=== PATIENT | male | born 1950 | race Caucasian/White ===

== ENCOUNTER → 2016-04-20 | Outpatient (CLI) | payer MEDICARE, MEDICAID ==
[2016-04-20 13:13] LABS: BASO % 0.2 % (0.0-1.0); EOS # 1.9 K/mm3 (0.0-0.50); EOS % 29.6 % (0.0-3.0); LYMPH # 0.8 K/mm3 (1.5-4.5); LYMPH % 12.5 % (24.0-44.0); MEAN CORPUSCULAR HEMOGLOBIN 31.2 pg (27.0-33.0); MEAN CORPUSCULAR HGB CONC 33.1 g/dl (32.0-36.5); MEAN CORPUSCULAR VOLUME 94.3 fl (80.0-96.0); MONO # 0.2 K/mm3 (0.0-0.8); MONO % 2.5 % (0.0-5.0); NEUTROPHILS # 3.5 K/mm3 (1.8-7.7); NEUTROPHILS % 53.8 % (36.0-66.0); RED CELL DISTRIBUTION WIDTH 12.8 % (11.5-14.5); WHITE BLOOD COUNT 6.4 K/mm3 (4.0-10.0)
== END ==
LOC: M LAB 12:20
PROVIDERS: ATTEND Internal Medicine Gastroenterology
DX: K51.90 Ulcerative colitis, unspecified, without complications (principal)

== ENCOUNTER → 2016-04-25 | Outpatient (CLI) | payer MEDICARE ==
[~2016-04-25] VITALS: Ht 182.9 cm; Wt 75.0 kg
[~2016-04-25] MED LIST: ALBU83IN INH; APRI0.37 PO; CITA20TA4 PO; CLON0.5T PO; NS 1,000 ML IV SCH; PRED20TA PO; PROPOFOL 200 MG/20 ML VIAL As Ordered ONE; SUCR1TA PO; SYMB80INH INH; XANA0.5T PO; [UNRECOGNIZED DRUG - OTHER]
--- NOTE | 2016-04-25 14:35 | ROOR ---
Patient Name: Todd Najera Procedure Date: 04/25/2016 2:14 PM Date of : 1950 Age: 65 Room: [facility] Gender: Male Note Status: Finalized Procedure: Upper GI endoscopy + Biopsies + Hemoclip Indications: Dysphagia, Weight loss Providers: Andrade Gaona MD Referring MD: ARIA London Requesting Provider: Medicines: Monitored Anesthesia Care Complications: No immediate complications. Procedure: Pre-Anesthesia Assessment: - The heart rate, respiratory rate, oxygen saturations, blood pressure, adequacy of pulmonary ventilation, and response to care were monitored throughout the procedure. The Endoscope was introduced through the mouth, and advanced to the second part of duodenum. The upper GI endoscopy was accomplished without difficulty. The patient tolerated the procedure well. Findings: The Z-line was regular and was found 40 cm from the incisors. Mildly severe esophagitis with no bleeding was found 40 cm from the incisors. Biopsies were taken with a cold forceps for histology. Mildly severe esophagitis with no bleeding was found 40 cm from the incisors. Biopsies were taken with a cold forceps for histology. To stop active bleeding, one hemostatic clip was successfully placed (MR conditional) at the gastroesophageal junction. There was no bleeding at the end of the procedure. Diffuse candidiasis was found in the middle third of the esophagus. Biopsies were taken with a cold forceps for histology. No other significant abnormalities were identified in a careful examination of the stomach. The exam of the duodenum was otherwise normal. Impression: - Z-line regular, 40 cm from the incisors. - Mildly severe candidiasis esophagitis. Biopsied. - Mildly severe reflux esophagitis. Biopsied. - Monilial esophagitis. Biopsied. - One hemostatic clip was successfully placed (MR conditional) at the gastroesophageal junction. - The examination was otherwise normal. Recommendation: - Patient has a contact number available for emergencies. The signs and symptoms of potential delayed complications were discussed with the patient. Return to normal activities tomorrow. Written discharge instructions were provided to the patient. - Discharge patient to home. - Follow an antireflux regimen. - Continue present medications. - Await pathology results. - Telephone GI clinic for pathology results in 1 week. - Return to referring physician. - The findings and recommendations were discussed with the patient's family. Andrade Gaona MD Andrade Gaona MD 04/25/2016 2:35:40 PM This report has been signed electronically. Number of Addenda: 0 Note Initiated On: 04/25/2016 2:14 PM Estimated Blood Loss: Estimated blood loss: none.
--- NOTE | 2016-04-25 14:53 | ROOR ---
Patient Name: Todd Najera Procedure Date: 04/25/2016 2:16 PM Date of : 1950 Age: 65 Room: [facility] Gender: Male Note Status: Finalized Procedure: Colonoscopy to Cecum + Biopsy Polypectomy + Biopsies for MC. Indications: Abdominal pain, Clinically significant diarrhea of unexplained origin, Weight loss Providers: Andrade Gaona MD Referring MD: ARIA London Requesting Provider: Medicines: Monitored Anesthesia Care Complications: No immediate complications. Procedure: Pre-Anesthesia Assessment: - The heart rate, respiratory rate, oxygen saturations, blood pressure, adequacy of pulmonary ventilation, and response to care were monitored throughout the procedure. The Colonoscope was introduced through the anus and advanced to the cecum, identified by appendiceal orifice and ileocecal valve. The colonoscopy was performed without difficulty. The patient tolerated the procedure well. The quality of the bowel preparation was good. Findings: The perianal and digital rectal examinations were normal. Non-bleeding internal hemorrhoids were found during retroflexion. The hemorrhoids were mild, small and Grade I (internal hemorrhoids that do not prolapse). Multiple small and large-mouthed diverticula were found in the entire colon. A diminutive polyp was found at 30 cm proximal to the anus. The polyp was sessile. The polyp was removed with a jumbo cold forceps. Resection and retrieval were complete. A scattered area of mildly erythematous and granular mucosa was found in the recto-sigmoid colon. Biopsies for histology were taken with a cold forceps from the ascending colon, transverse colon and descending colon for evaluation of microscopic colitis. The exam was otherwise without abnormality on direct and retroflexion views. Impression: - Non-bleeding internal hemorrhoids. - Diverticulosis in the entire examined colon. - One diminutive polyp at 30 cm proximal to the anus, removed with a jumbo cold forceps. Resected and retrieved. - Erythematous and granular mucosa in the recto-sigmoid colon. - The examination was otherwise normal on direct and retroflexion views. - Biopsies were taken with a cold forceps from the ascending colon, transverse colon and descending colon for evaluation of microscopic colitis. - The exam was otherwise normal to the cecum. Recommendation: - Patient has a contact number available for emergencies. The signs and symptoms of potential delayed complications were discussed with the patient. Return to normal activities tomorrow. Written discharge instructions were provided to the patient. - High fiber diet. - Discharge patient to home. - Continue present medications. - Await pathology results. - Telephone GI clinic for pathology results in 1 week. - Return to referring physician. - The findings and recommendations were discussed with the patient's family. Andrade Gaona MD Andrade Gaona MD 04/25/2016 2:52:47 PM This report has been signed electronically. Number of Addenda: 0 Note Initiated On: 04/25/2016 2:16 PM Estimated Blood Loss: Estimated blood loss: none.
[2016-04-25 15:46] VITALS: BP 115/72
== END | disposition home or self-care (01) ==
LOC: M OPP 12:33
PROVIDERS: ATTEND Internal Medicine Gastroenterology
DX: K64.0 First degree hemorrhoids (principal); K57.30 Diverticulosis of large intestine without perforation or abscess without bleeding; D12.5 Benign neoplasm of sigmoid colon; K63.89 Other specified diseases of intestine; R63.4 Abnormal weight loss; K21.0 Gastro-esophageal reflux disease with esophagitis; B37.81 Candidal esophagitis; I10 Essential (primary) hypertension; J45.909 Unspecified asthma, uncomplicated; K51.90 Ulcerative colitis, unspecified, without complications; R19.7 Diarrhea, unspecified; Z79.52 Long term (current) use of systemic steroids; Z79.899 Other long term (current) drug therapy; Z87.891 Personal history of nicotine dependence

== ENCOUNTER → 2016-06-18 | Outpatient (REF) | payer MEDICARE, MEDICAID ==
[~2016-06-18] MED LIST changes: -NS 1,000 ML IV SCH; -PROPOFOL 200 MG/20 ML VIAL As Ordered ONE
[2016-06-18 14:08] LABS: BASO % 0.2 % (0.0-1.0); EOS # 0.6 K/mm3 (0.0-0.50); EOS % 10.4 % (0.0-3.0); LARGE UNSTAINED CELL # 0.1 K/mm3 (0.0-0.4); LARGE UNSTAINED CELL % 0.9 % (0.0-4.0); LYMPH # 0.8 K/mm3 (1.5-4.5); LYMPH % 14.9 % (24.0-44.0); MEAN CORPUSCULAR HEMOGLOBIN 31.7 pg (27.0-33.0); MEAN CORPUSCULAR HGB CONC 32.3 g/dl (32.0-36.5); MEAN CORPUSCULAR VOLUME 98.1 fl (80.0-96.0); MONO # 0.1 K/mm3 (0.0-0.8); MONO % 2.2 % (0.0-5.0); NEUTROPHILS # 3.9 K/mm3 (1.8-7.7); NEUTROPHILS % 71.5 % (36.0-66.0); PLATELET COUNT, AUTOMATED 316 k/mm3 (150-450); RED CELL DISTRIBUTION WIDTH 13.9 % (11.5-14.5); WHITE BLOOD COUNT 5.5 K/mm3 (4.0-10.0)
[2016-06-18 14:29] LABS: ERYTHROCYTE SEDIMENTATION RATE 11 mm/hr (0-20)
== END ==
LOC: M LABDRAW1 13:10
PROVIDERS: ATTEND Physician Assistant Surgical
DX: M70.41 Prepatellar bursitis, right knee (principal); Z79.899 Other long term (current) drug therapy

== ENCOUNTER → 2016-06-28 | Outpatient (CLI) | payer MEDICARE, MEDICAID ==
[2016-06-28 16:44] LABS: BASO % 0.1 % (0.0-1.0); EOS # 0.7 K/mm3 (0.0-0.50); EOS % 11.7 % (0.0-3.0); LYMPH # 0.8 K/mm3 (1.5-4.5); LYMPH % 13.4 % (24.0-44.0); MEAN CORPUSCULAR HEMOGLOBIN 31.1 pg (27.0-33.0); MEAN CORPUSCULAR HGB CONC 31.9 g/dl (32.0-36.5); MEAN CORPUSCULAR VOLUME 97.5 fl (80.0-96.0); MONO # 0.3 K/mm3 (0.0-0.8); MONO % 4.4 % (0.0-5.0); NEUTROPHILS # 4.3 K/mm3 (1.8-7.7); NEUTROPHILS % 69.5 % (36.0-66.0); WHITE BLOOD COUNT 6.1 K/mm3 (4.0-10.0)
== END ==
LOC: M SMT 11:27
PROVIDERS: ATTEND Allergy & Immunology Allergy
DX: T78.3XXA Angioneurotic edema, initial encounter (principal)

== ENCOUNTER → 2016-07-02 | Outpatient (CLI) | payer MEDICARE, MEDICAID ==
[2016-07-02 18:43] LABS: ALBUMIN 3.5 GM/DL (3.2-5.2); ALBUMIN/GLOBULIN RATIO 1.13 (1.00-1.93); ALKALINE PHOSPHATASE 69 U/L (45-117); ALT/SGPT 15 U/L (12-78); ANION GAP 6 MEQ/L (8-16); AST/SGOT 15 U/L (15-37); BILIRUBIN,TOTAL 0.4 MG/DL (0.2-1.0); BLOOD UREA NITROGEN 15 MG/DL (7-18); CALCIUM LEVEL 8.5 MG/DL (8.8-10.2); CARBON DIOXIDE LEVEL 28 MEQ/L (21-32); CHLORIDE LEVEL 107 MEQ/L (98-107); CREATININE FOR GFR 1.18 MG/DL (0.70-1.30); GLOMERULAR FILTRATION RATE > 60.0 (>49); GLUCOSE, FASTING 72 MG/DL (80-110); POTASSIUM SERUM 4.2 MEQ/L (3.5-5.1); SODIUM LEVEL 141 MEQ/L (136-145); TOTAL PROTEIN 6.6 GM/DL (6.4-8.2)
[2016-07-02 19:02] LABS: THYROID PEROXIDASE ANTIBODY < 28.0 U/ML (<60.0)
[2016-07-03 08:15] LABS: CONTROL LINE HPYORI INT CTR LINE PRESENT
== END ==
LOC: M SMT 13:45
PROVIDERS: ATTEND Allergy & Immunology Allergy
DX: T78.3XXA Angioneurotic edema, initial encounter (principal)

== ENCOUNTER → 2016-07-04 | Outpatient (REF) | payer MEDICARE, MEDICAID | LOC: M LABDRWAD 10:34 | PROVIDERS: ATTEND Allergy & Immunology Allergy | DX: T78.3XXA Angioneurotic edema, initial encounter (principal) ==

== ENCOUNTER → 2016-07-05 | Outpatient (REF) | payer MEDICARE, MEDICAID | LOC: M LAB REF 20:29 | PROVIDERS: ATTEND Physician Assistant | DX: J02.9 Acute pharyngitis, unspecified (principal) ==

== ENCOUNTER → 2016-07-31 | Outpatient (REF) | payer MEDICARE, MEDICAID ==
[2016-07-31 13:35] LABS: BASO % 0.1 % (0.0-1.0); EOS # 0.8 K/mm3 (0.0-0.50); EOS % 11.4 % (0.0-3.0); LARGE UNSTAINED CELL # 0.1 K/mm3 (0.0-0.4); LARGE UNSTAINED CELL % 1.3 % (0.0-4.0); LYMPH # 0.6 K/mm3 (1.5-4.5); LYMPH % 9.1 % (24.0-44.0); MEAN CORPUSCULAR HEMOGLOBIN 30.8 pg (27.0-33.0); MEAN CORPUSCULAR HGB CONC 31.5 g/dl (32.0-36.5); MEAN CORPUSCULAR VOLUME 97.7 fl (80.0-96.0); MONO # 0.2 K/mm3 (0.0-0.8); MONO % 3.2 % (0.0-5.0); NEUTROPHILS # 5.2 K/mm3 (1.8-7.7); NEUTROPHILS % 74.9 % (36.0-66.0); PLATELET COUNT, AUTOMATED 367 k/mm3 (150-450); RED CELL DISTRIBUTION WIDTH 13.8 % (11.5-14.5)
[2016-07-31 14:10] LABS: ALBUMIN 3.5 GM/DL (3.2-5.2); ALBUMIN/GLOBULIN RATIO 1.06 (1.00-1.93); ALKALINE PHOSPHATASE 76 U/L (45-117); ALT/SGPT 21 U/L (12-78); ANION GAP 7 MEQ/L (8-16); AST/SGOT 18 U/L (15-37); BILIRUBIN,TOTAL 0.2 MG/DL (0.2-1.0); BLOOD UREA NITROGEN 12 MG/DL (7-18); CALCIUM LEVEL 8.4 MG/DL (8.8-10.2); CARBON DIOXIDE LEVEL 31 MEQ/L (21-32); CHLORIDE LEVEL 104 MEQ/L (98-107); CHOLESTEROL LEVEL 190 MG/DL (<200); CREATININE FOR GFR 1.18 MG/DL (0.70-1.30); GLOMERULAR FILTRATION RATE > 60.0 (>49); GLUCOSE, FASTING 121 MG/DL (80-110); POTASSIUM SERUM 4.6 MEQ/L (3.5-5.1); SODIUM LEVEL 142 MEQ/L (136-145); TOTAL PROTEIN 6.8 GM/DL (6.4-8.2); TRIGLYCERIDES LEVEL 74 MG/DL (<150)
== END ==
LOC: M SFHCADAM 08:32
PROVIDERS: ATTEND Physician Assistant Medical
DX: F41.0 Panic disorder [episodic paroxysmal anxiety] (principal); K51.90 Ulcerative colitis, unspecified, without complications

== ENCOUNTER → 2016-11-05 | Outpatient (CLI) | payer MEDICARE | LOC: M RAD 16:26 | PROVIDERS: ATTEND Internal Medicine Gastroenterology | DX: R10.9 Unspecified abdominal pain (principal) ==

== ENCOUNTER → 2016-11-05 | Outpatient (REF) | payer MEDICARE | LOC: M LABDRWAD 20:10 | PROVIDERS: ATTEND Internal Medicine Gastroenterology | DX: R63.4 Abnormal weight loss (principal); R10.9 Unspecified abdominal pain ==

== ENCOUNTER → 2016-11-23 | Outpatient (CLI) | payer MEDICARE ==
[~2016-11-23] MED LIST changes: +E-Z-GAS II EFFERVESCENT PACKET (SODIUM BICARB./CITRIC ACID/SIMETHICONE) As Ordered ONE; +E-Z-HD 98% w/w 340GM SUSP BTL As Ordered ONE; +E-Z-PAQUE 96% w/w SUSP 176GM BTL As Ordered ONE
--- NOTE | 2016-11-23 17:13 | REP ---
Upper GI air contrast with small bowel follow-through The procedure was performed under the direct supervision of Dr. Patino. The inside sales consultant film shows no organomegaly or pathological masses. The intestinal gas pattern is nonspecific. There are gallstones identified. Liquid barium and gas producing crystals were given in the erect position as well as liquid barium in the prone oblique position in order to perform a double contrast upper GI examination. Additionally liquid barium was given at the end of the examination in order to perform a small bowel follow-through. The oral and pharyngeal stages of deglutition are unremarkable. Esophageal transport is prompt and efficient and there is no esophagitis or stricture or mucosal ring. There is a sliding type hiatal hernia present . Gastroesophageal reflux is not demonstrated on this examination. The stomach erazo are normally outlined . The rugal folds are smooth and regular. There is no gastritis neoplasm or ulcer disease. Within the duodenum there are thickened folds which may represent duodenitis. There is no paty ulcer identified. The visualized portion of the proximal small bowel appears normal in course and caliber. The barium column was followed through the small bowel to the level of the terminal ileum. Small bowel transit time is approximately 30 minutes. During fluoroscopy gentle palpation shows all loops are freely movable and pliable. There are no fixed or angulated loops. The bowel is displaced of the pelvis likely due to a distended bladder. Spot filming of the terminal ileum shows it to be unremarkable. Impression: 1. There is a sliding type hiatal hernia present. 2. There are thickened folds in the duodenum which may represent duodenitis. There is no paty ulcer identified. 3. There are gallstones identified on the inside sales consultant film . 4. The bowel is displaced out of the pelvis likely due to distended bladder. 3 minutes and 45 seconds of fluoro time was utilized for this procedure. Reviewed by CARI Wilson 11/23/2016 04:56 PSigned by Cruz Patino MD 11/23/2016 05:00 P
== END ==
LOC: M RAD 08:51
PROVIDERS: ATTEND Internal Medicine Gastroenterology
DX: R10.9 Unspecified abdominal pain (principal); R63.4 Abnormal weight loss

== ENCOUNTER → 2016-12-21 | Outpatient (CLI) | payer MEDICARE ==
[~2016-12-21] MED LIST changes: -E-Z-GAS II EFFERVESCENT PACKET (SODIUM BICARB./CITRIC ACID/SIMETHICONE) As Ordered ONE; -E-Z-HD 98% w/w 340GM SUSP BTL As Ordered ONE; -E-Z-PAQUE 96% w/w SUSP 176GM BTL As Ordered ONE
== END ==
LOC: M LAB 11:08
PROVIDERS: ATTEND Internal Medicine Gastroenterology
DX: R63.4 Abnormal weight loss (principal)

== ENCOUNTER → 2018-04-21 | Outpatient (REF) | payer MEDICARE, MEDICAID ==
[~2018-04-21] MED LIST changes: -CLON0.5T PO; +CLON0.5T8 PO
[2018-04-21 13:07] LABS: BASO % 0.5 % (0.0-1.0); EOS # 0.6 10^3/uL (0.0-0.50); EOS % 6.9 % (0.0-3.0); HEMATOCRIT 45.9 % (42.0-52.0); LYMPH % 11.3 % (24.0-44.0); MEAN CORPUSCULAR HGB CONC 32.7 g/dl (32.0-36.5); MEAN CORPUSCULAR VOLUME 94.8 fl (80.0-96.0); MONO # 0.5 10^3/uL (0.0-0.8); MONO % 5.8 % (0.0-5.0); NEUTROPHILS # 6.5 10^3/uL (1.8-7.7); NEUTROPHILS % 75.2 % (36.0-66.0); PLATELET COUNT, AUTOMATED 300 10^3/uL (150-450); RED BLOOD COUNT 4.84 10^6/uL (4.30-6.10); WHITE BLOOD COUNT 8.6 10^3/uL (4.0-10.0)
[2018-04-21 13:56] LABS: ALBUMIN 3.6 GM/DL (3.2-5.2); ALT/SGPT 22 U/L (12-78); BILIRUBIN,TOTAL 0.5 MG/DL (0.2-1.0); BLOOD UREA NITROGEN 13 MG/DL (7-18); CALCIUM LEVEL 8.5 MG/DL (8.8-10.2); CARBON DIOXIDE LEVEL 27 MEQ/L (21-32); CHLORIDE LEVEL 108 MEQ/L (98-107); CHOLESTEROL LEVEL 189 MG/DL (<200); CHOLESTEROL RISK RATIO 3.203 (<5); CREATININE FOR GFR 1.17 MG/DL (0.70-1.30); GLOMERULAR FILTRATION RATE > 60.0 (>49); GLUCOSE, FASTING 100 MG/DL (70-100); HDL CHOLESTEROL 59 MG/DL (>40); LDL CHOLESTEROL 112 MG/DL (<100); NON-HDL-C 130 MG/DL; POTASSIUM SERUM 4.6 MEQ/L (3.5-5.1); SODIUM LEVEL 142 MEQ/L (136-145); TRIGLYCERIDES LEVEL 89 MG/DL (<150)
== END ==
LOC: M SFHCADAM 08:02
PROVIDERS: ATTEND Physician Assistant Medical
DX: Z13.220 Encounter for screening for lipoid disorders (principal); Z13.0 Encounter for screening for diseases of the blood and blood-forming organs and certain disorders involving the immune mechanism; Z12.5 Encounter for screening for malignant neoplasm of prostate; F41.0 Panic disorder [episodic paroxysmal anxiety]; J45.41 Moderate persistent asthma with (acute) exacerbation; K51.90 Ulcerative colitis, unspecified, without complications; K20.9 Esophagitis, unspecified; L98.9 Disorder of the skin and subcutaneous tissue, unspecified
CPT/HCPCS: 80053; 80061; 85025; G0103; G0463

== ENCOUNTER → 2018-05-05 | Outpatient (REF) | payer MEDICARE, MEDICAID | LOC: M SMT 12:44 | PROVIDERS: ATTEND Nurse Practitioner Family | DX: R97.20 Elevated prostate specific antigen [PSA] (principal); R33.9 Retention of urine, unspecified | CPT/HCPCS: 51702; 51798; 87086; G0463 ==

== ENCOUNTER → 2018-05-12 | Outpatient (REF) | payer MEDICARE, MEDICAID ==
[2018-05-12 13:33] LABS: APPEARANCE, URINE HAZY (CLEAR); BACTERIA, URINE AUTO NEGATIVE (NEGATIVE); BILIRUBIN, URINE AUTO NEGATIVE (NEGATIVE); BLOOD, URINE BLOOD 3+ (NEGATIVE); COLOR, URINE YELLOW (YELLOW); GLUCOSE, URINE (UA) AUTO NEGATIVE (NEGATIVE); KETONE, URINE AUTO NEGATIVE (NEGATIVE); LEUKOCYTE ESTERASE, URINE AUTO NEGATIVE (NEGATIVE); NITRITE, URINE AUTO NEGATIVE (NEGATIVE); PROTEIN, URINE AUTO NEGATIVE (NEGATIVE); RBC, URINE AUTO 138 /HPF (0-3); SPECIFIC GRAVITY URINE AUTO 1.018 (1.002-1.035); SQUAMOUS EPITHELIAL CELL UR AU 0 /HPF (0-6); UROBILINOGEN, URINE AUTO 0.2 mg/dL (0.0-2.0); WBC, URINE AUTO 1 /HPF (0-3)
== END ==
LOC: M SMT 13:03
PROVIDERS: ATTEND Nurse Practitioner Family
DX: R30.9 Painful micturition, unspecified (principal)

== ENCOUNTER → 2018-06-03 | Outpatient (REF) | payer MEDICARE, MEDICAID, OTHER ==
[2018-06-05 15:05] LABS: PSA % FREE 12.5 % (.); PSA FREE 0.76 ng/mL; PSA TOTAL 6.1 ng/mL (0.0-4.0)
== END ==
LOC: M LABDRWAD 19:19
PROVIDERS: ATTEND Nurse Practitioner Family
DX: R97.20 Elevated prostate specific antigen [PSA] (principal)
CPT/HCPCS: 36415; 84154; G0463

== ENCOUNTER → 2018-07-08 | Outpatient (CLI) | payer MEDICARE, OTHER | LOC: M SMT PRO 09:30 | PROVIDERS: ATTEND Urology | DX: R97.20 Elevated prostate specific antigen [PSA] (principal); Z53.8 Procedure and treatment not carried out for other reasons ==

== ENCOUNTER → 2018-07-08 | Outpatient (REF) | payer MEDICARE, MEDICAID, OTHER | LOC: M SMT 13:57 | PROVIDERS: ATTEND Urology | DX: R30.0 Dysuria (principal) ==

== ENCOUNTER → 2018-07-25 | Outpatient (REF) | payer MEDICARE ==
[~2018-07-25] MED LIST changes: -CITA20TA4 PO; +CITA20TA6 PO
[2018-07-25 18:12] LABS: APPEARANCE, URINE CLEAR (CLEAR); BACTERIA, URINE AUTO NEGATIVE (NEGATIVE); BILIRUBIN, URINE AUTO NEGATIVE (NEGATIVE); BLOOD, URINE BLOOD NEGATIVE (NEGATIVE); COLOR, URINE YELLOW (YELLOW); GLUCOSE, URINE (UA) AUTO NEGATIVE (NEGATIVE); KETONE, URINE AUTO NEGATIVE (NEGATIVE); LEUKOCYTE ESTERASE, URINE AUTO NEGATIVE (NEGATIVE); MUCUS, URINE SMALL (NEGATIVE); NITRITE, URINE AUTO NEGATIVE (NEGATIVE); PROTEIN, URINE AUTO NEGATIVE (NEGATIVE); RBC, URINE AUTO 0 /HPF (0-3); SQUAMOUS EPITHELIAL CELL UR AU 0 /HPF (0-6); UROBILINOGEN, URINE AUTO 0.2 mg/dL (0.0-2.0); WBC, URINE AUTO 1 /HPF (0-3)
== END ==
LOC: M SMT 17:13
PROVIDERS: ATTEND Urology
DX: N39.0 Urinary tract infection, site not specified (principal)

== ENCOUNTER → 2018-07-29 | Outpatient (CLI) | payer MEDICARE ==
--- NOTE | 2018-07-29 10:56 | REP ---
Prostate sonography: History: Elevated PSA Sonographic findings: Trans rectal prostate sonography demonstrates unremarkable seminal vesicles. Prostate gland is heterogeneously enlarged with calcifications and cystic changes noted. Glandular dimensions are measured at 5.0 x 4.3 x 5.2 cm with a calculated glandular volume of 57.8 ml. There are four focally identified hypoechoic nodular areas. In the right base there is a 1.2 centimeter area, and right mid gland there is a 0.6 cm area in the left mid gland there is a 0.5 cm hypoechoic area in the left apex laterally there is a 0.6 cm hypoechoic area. Transrectal sonographic guidance is provided to Dr. Wilson who performed trans rectal ultrasound guided needle biopsy procedure . Electronically Signed by Rajesh Chavez MD 07/29/2018 10:48 A
== END ==
LOC: M SMT PRO 08:50
PROVIDERS: ATTEND Urology
DX: C61 Malignant neoplasm of prostate (principal)
CPT/HCPCS: 55700; 76872; 76942; G0416

== ENCOUNTER → 2018-10-13 | Outpatient (REF) | payer MEDICARE, MEDICAID | LOC: M SFHCPLAZ 09:37 | PROVIDERS: ATTEND Dermatology | DX: D23.39 Other benign neoplasm of skin of other parts of face (principal); L82.0 Inflamed seborrheic keratosis ==

== ENCOUNTER → 2018-11-12 | Outpatient (CLI) | payer MEDICARE, MEDICAID ==
[~2018-11-12] MED LIST changes: +ALLE1TAB23 PO; +FLOM0.4C39 PO; +LEVOTAB10 PO; +SULF1TAB93 PO
--- NOTE | 2018-11-12 13:38 | REP ---
Clinical: Preoperative assessment. Prostate cancer . Comparison: 08/30/2015 . Technique: PA and lateral. Findings: The mediastinum and cardiac silhouette are normal. The lung schmitz are clear and without acute consolidation, effusion, or pneumothorax. The skeletal structures are intact and normal. Impression: 1. No acute cardiopulmonary process. Electronically Signed by Mich Pandey MD 11/12/2018 01:30 P
[2018-11-12 18:22] LABS: HEMATOCRIT 45.2 % (42.0-52.0); MEAN CORPUSCULAR HGB CONC 33.2 g/dl (32.0-36.5); MEAN CORPUSCULAR VOLUME 96.4 fl (80.0-96.0); PLATELET COUNT, AUTOMATED 305 10^3/uL (150-450); RED BLOOD COUNT 4.69 10^6/uL (4.30-6.10); WHITE BLOOD COUNT 7.4 10^3/uL (4.0-10.0)
[2018-11-12 18:30] LABS: BLOOD UREA NITROGEN 11 MG/DL (7-18); CALCIUM LEVEL 9.4 MG/DL (8.8-10.2); CARBON DIOXIDE LEVEL 32 MEQ/L (21-32); CHLORIDE LEVEL 108 MEQ/L (98-107); CREATININE FOR GFR 1.15 MG/DL (0.70-1.30); GLOMERULAR FILTRATION RATE > 60.0 (>49); GLUCOSE, FASTING 98 MG/DL (70-100); SODIUM LEVEL 143 MEQ/L (136-145)
[2018-11-12 18:34] LABS: INR 1.06; PROTHROMBIN TIME 13.5 SECONDS (11.8-14.0)
[2018-11-12 18:35] LABS: PARTIAL THROMBOPLASTIN TIME 31.3 SECONDS (25.0-38.4)
== END ==
LOC: M SMT 13:04
PROVIDERS: ATTEND Urology
DX: Z01.818 Encounter for other preprocedural examination (principal); C61 Malignant neoplasm of prostate; N39.0 Urinary tract infection, site not specified

== ENCOUNTER 2018-11-20 10:53 | Inpatient (IN) | payer MEDICARE ==
[~2018-11-20] VITALS: Ht 182.9 cm; Wt 75.2 kg
[~2018-11-20 10:53] MED LIST changes: +CLON0.5T2 PO; -CLON0.5T8 PO; +LIDOCAINE 2% INJ 100 MG/5 ML SDV (FOR ANES.) As Ordered ONE; +MIDAZOLAM INJ 2 MG/2 ML VIAL (J2250) As Ordered ONE; +ONDANSETRON 4MG/2ML VIAL (J2405) As Ordered ONE; +ROCURONIUM BROMIDE 50 MG/5 ML VIAL As Ordered ONE; +SUGAMMADEX SODIUM 500 MG/5 ML VIAL (BRIDION) As Ordered ONE; +dexameTHASONE 4 MG/ML 1ML VIAL (J1100) As Ordered ONE; +fentaNYL 250 MCG/5 ML INJECTION (J3010) As Ordered ONE; +propofoL 200 MG/20 ML VIAL As Ordered ONE
[2018-11-20] MEDS ORDERED: ceFAZolin 2 GM/D5W 50 ML IV BAG (J0690 PER 500MG) As Ordered ONE (11:24)
[2018-11-20] MEDS ORDERED: HEPARIN SOD (PORCINE) 5000 UNITS/ML VIAL As Ordered ONE ×2 (11:24→11:52)
[2018-11-20] MEDS ORDERED: ceFAZolin SOD 2 GM in IV 1 EA IV ONE (11:30)
[2018-11-20] MEDS ORDERED: HEPARIN SOD (PORCINE) 5000 UNITS/ML VIAL SQ ONE (11:45)
[2018-11-20] MEDS ORDERED: LR 1,000 ML IV ONE (12:45)
[2018-11-20] MEDS ORDERED: LIDOCAINE 1% SDV INJ 30 ML VIAL As Ordered ONE (12:53)
[2018-11-20] MEDS ORDERED: BUPIVACAINE HCL 0.25% 30 ML VIAL As Ordered ONE (12:53)
[2018-11-20] MEDS ORDERED: MORPHINE 4 MG/ML 1ML VIAL/SYRINGE (J2270) IV PRN (13:30)
[2018-11-20] MEDS ORDERED: PERCOCET 5MG/325MG TAB PO PRN ×3 (13:30→19:45)
[2018-11-20] MEDS ORDERED: ONDANSETRON 4MG/2ML VIAL (J2405) IV PRN ×2 (13:30→19:45)
[2018-11-20] MEDS ORDERED: ALBUTEROL 90 MCG/ACT 8GM HFA INHALER INH PRN (13:30)
[2018-11-20] MEDS ORDERED: ACETAMINOPHEN TAB 650MG DOSE (2X325MG) PO PRN (13:30)
[2018-11-20] MEDS ORDERED: PHENYLephrine HCL 500 MCG/5 ML (100MCG/ML) SYRINGE (J2370) As Ordered ONE (13:52)
[2018-11-20] MEDS ORDERED: ePHEDrine SULFATE 25 MG/5 ML(5MG/ML) SYRINGE As Ordered ONE (13:52)
[2018-11-20] MEDS: NS 1,000 ML IV SCH ×2 (14:00→21:16)
[2018-11-20] MEDS ORDERED: ROCURONIUM BROMIDE 50 MG/5 ML VIAL As Ordered ONE ×2 (14:05→16:13)
[2018-11-20] MEDS ORDERED: HYDROmorphone HCL 2 MG/ML 1ML VIAL (J1170) As Ordered ONE (14:44)
[2018-11-20] MEDS ORDERED: ACETAMINOPHEN 1000MG 100ML IV BTL (OFIRMEV) (J0131 PER 10MG) As Ordered ONE (18:03)
[2018-11-20] MEDS ORDERED: KETOROLAC 60 MG/2 ML VIAL (J1885) As Ordered ONE (18:06)
--- NOTE | 2018-11-20 19:16 | ROOPDOC ---
[facility] Report Of Operation Report of Operation DATE OF PROCEDURE: 11/20/18 PREPROCEDURE DIAGNOSES: Prostate Cancer. POSTPROCEDURE DIAGNOSES: Prostate Cancer. PROCEDURE: Robotic-assisted Laparoscopic Radical Prostatectomy. SURGEON: Rogelio Galo MD ELECTRONIC BENCH TECHNICIAN: None ANESTHESIA: General. OPERATIVE INDICATIONS: This is a 68 year old male with low risk clinical T1c [place] 3+3 prostate cancer. After a discussion of the options for treatment, he elected to undergo the above procedure. DESCRIPTION OF PROCEDURE: The patient was brought to the operating room and general anesthesia was induced. Prophylactic antibiotics were infused. He was then placed in the dorsal lithotomy position and prepped and draped in the usual sterile fashion. At this point, a Wing catheter was inserted into the bladder and the balloon was filled with 10 mL of sterile water. We then made a midline incision just above the umbilicus for a 12 mm port. A Veress needle was utilized to achieve pneumoperitoneum. Next, an 8 mm port was inserted into the incision and subsequently a camera was inserted. There were no injuries from t he Veress needle or initial trocar placement. At this point, we placed the remaining ports, including a 12 mm assistant administrator port a nd then three robotic ports in the usual configuration in line with the umbilicus. Once all the ports were placed, the robot was docked. Lysis of adhesions between the sigmoid colon and abdominal wall was then performed. The bladder was then released from the anterior abdominal wall using electrocautery. Once the bladder was dropped, the fat overlying the prostate was cleared using electrocautery. The superficial dorsal vein was controlled with electrocautery. The endopelvic fascia was opened on both sides and the dorsal venous complex was cleared. Next, a #0 Vicryl [id number]-yprng stitch was placed around the dorsal venous complex. Once that was done, the bladder was opened and dissected away from the prostate. Of note, the patient had a large median lobe that made dissection of the prostate off the bladder very difficult. At this point I dissected posterior and the vasa deferentia were identified. They were ligated with Weck clips and transected. The seminal vesicles were then dissected out. At this point the neurovascular bundles were dissected off the prostate bilaterally. When that was done bilateral pedicles were ligated and transected using a Harmonic scalpel. After taking care of the pedicles and mobilizing the rectum off the prostate below. At this point, the dorsal venous complex was transected with electrocautery. The urethra was then opened and the catheter w as withdrawn and the posterior urethra was transected, thus freeing the prostate. At this point, we checked for hemostasis and it did appear very good. Once hemostasis was confirmed, I then moved on to perform the vesicourethral anastomosis. The vesicourethral anastomosis was performed in running fashion using a Quill stitch. Once this was done, the final #20-Mal[place] Wing catheter was placed. The balloon was filled with 15 mL of sterile water. Upon completion of the vesicourethral anastomosis, it was tested by filling the bladder with sterile water. There was no leakage, indicating a watertight anastomosis. At this point, the prostate was placed in an Endo Catch bag for future retrieval. The robot was then undocked. A Geo fascial closure device was utilized to place a #0 Vicryl suture between the fascia of the 12 mm assistant administrator port. At this point, a Alex- Leger drain was brought in through the left robotic port skin site and the drain was positioned anterior to the bladder. The drain was secured to the skin with #2-0 Ethilon suture. Next, all the remaining ports were removed and there did not appear to be any bleeding from any of the port sites. The prostate was then extracted from the camera port site after the skin was extended. The fascia in this incision was then closed with a running #0 Vicryl stitch. The previously placed #0 Vicryl free ties through the assistant administrator port were then tied down and all incisions were irrigated. Last, all of the incisions were closed with running subcuticular #4-0 Monocryl sutures. Local anesthesia was applied. Dermabond was then applied to the incisions. This marked the conclusion of the procedure. The patient was then taken out of the dorsal lithotomy position, awakened from anesthesia and transported to the recovery room in stable condition. ESTIMATED BLOOD LOSS: 175 mL. COMPLICATIONS: None. SPECIMENS: Prostate. PLAN: The patient will be admitted to the hospital postoperatively, and he will likely be discharged home within the next 1-2 days. ROGELIO GALO MD Nov 20, 2018 19:16
[2018-11-20 19:36] LABS: HEMATOCRIT 41.3 % (42.0-52.0); HEMOGLOBIN 13.9 g/dl (13.5-17.5); MEAN CORPUSCULAR HEMOGLOBIN 32.1 pg (27.0-33.0); MEAN CORPUSCULAR HGB CONC 33.7 g/dl (32.0-36.5); MEAN CORPUSCULAR VOLUME 95.4 fl (80.0-96.0); PLATELET COUNT, AUTOMATED 258 10^3/uL (150-450); RED BLOOD COUNT 4.33 10^6/uL (4.30-6.10); WHITE BLOOD COUNT 12.5 10^3/uL (4.0-10.0)
[2018-11-20] MEDS ORDERED: HYDROMORPHONE HCL 0.5 MG/ 0.5 ML SYRINGE (J1170 PER 1) IV PRN (19:45)
[2018-11-20] MEDS ORDERED: fentaNYL 100 MCG/2 ML INJECTION (J3010) IV PRN (19:45)
[2018-11-20] MEDS ORDERED: LR 1,000 ML IV SCH (19:45)
[2018-11-20 19:52] LABS: CALCIUM LEVEL 7.9 MG/DL (8.8-10.2); CREATININE FOR GFR 1.41 MG/DL (0.70-1.30); GLOMERULAR FILTRATION RATE 53.2 (>49)
[2018-11-20 20:30] VITALS: BP 133/78
[2018-11-20 20:54] VITALS: BP 133/79
[2018-11-20] MEDS: ceFAZolin SOD 1 GM in D5W MINI-BAG PLUS 50 ML IV SCH (21:17)
[2018-11-20] MEDS: HEPARIN SOD (PORCINE) 5000 UNITS/ML VIAL SC SCH (21:17)
[2018-11-20] MEDS: DOCUSATE SODIUM 100 MG CAP PO SCH (21:17)
[2018-11-20 21:46] VITALS: BP 131/78
[2018-11-20 23:08] VITALS: BP 126/78
[2018-11-21 00:48] VITALS: BP 127/78
[2018-11-21 01:37] VITALS: BP 128/76
[2018-11-21] MEDS: NS 1,000 ML IV SCH (04:59)
[2018-11-21] MEDS: HEPARIN SOD (PORCINE) 5000 UNITS/ML VIAL SC SCH ×2 (04:59→14:05)
[2018-11-21] MEDS: ceFAZolin SOD 1 GM in D5W MINI-BAG PLUS 50 ML IV SCH (04:59)
[2018-11-21 06:12] LABS: HEMOGLOBIN 12.9 g/dl (13.5-17.5); MEAN CORPUSCULAR HEMOGLOBIN 31.8 pg (27.0-33.0); MEAN CORPUSCULAR HGB CONC 33.1 g/dl (32.0-36.5); MEAN CORPUSCULAR VOLUME 96.1 fl (80.0-96.0); PLATELET COUNT, AUTOMATED 249 10^3/uL (150-450); RED BLOOD COUNT 4.06 10^6/uL (4.30-6.10); WHITE BLOOD COUNT 9.4 10^3/uL (4.0-10.0)
[2018-11-21 06:28] VITALS: BP 129/77
[2018-11-21 06:36] LABS: BLOOD UREA NITROGEN 16 MG/DL (7-18); CARBON DIOXIDE LEVEL 29 MEQ/L (21-32); CHLORIDE LEVEL 108 MEQ/L (98-107); GLOMERULAR FILTRATION RATE > 60.0 (>49); GLUCOSE, FASTING 108 MG/DL (70-100); POTASSIUM SERUM 4.1 MEQ/L (3.5-5.1); SODIUM LEVEL 139 MEQ/L (136-145)
[2018-11-21] MEDS: DOCUSATE SODIUM 100 MG CAP PO SCH (08:27)
--- NOTE | 2018-11-21 08:58 | IPNPDOC ---
Subjective Review oF Systems Chief Complaint The patient is a 68-year-old male admitted with a reason for visit of Prostate Cancer. Events since Last Encounter No acute events o/n. Patient notes good incisional pain control. His main complaint this morning is pain in his right eye. He feels like it was scratched. No n/v. No f/c/ns. Objective Physical Examination General Exam: Alert, Cooperative, No Acute Distress ABDOMEN EXAM: Soft, Tenderness (mild), Other (incisions clean/dry/intact; JD w/ serosang output) Skin Exam: Nl turgor and temperature Other physical findings catheter in place w/ dark pink urine draining Vital Signs/I&O Vital Signs Date Time Temp Pulse Resp B/P (MAP) Pulse Ox O2 Delivery O2 Flow Rate FiO2 11/21/18 06:28 98.8 63 20 129/77 (94) 97 I&O- Last 24 Hours up to 6 AM 11/21/18 06:00 Intake Total 3790 ml Output Total 625 ml Balance 3165 ml Laboratory Data Labs 24H Laboratory Tests 2 11/20/18 19:23: Nucleated Red Blood Cells % (auto) 0.0, Anion Gap 7L, Glomerular Filtration Rate 53.2, Blood Urea Nitrogen 14, Creatinine 1.41H, Sodium Level 139, Potassium Level 5.0, Chloride Level 109H, Carbon Dioxide Level 23, Calcium Level 7.9L 11/21/18 05:47: Nucleated Red Blood Cells % (auto) 0.0, Anion Gap 2L, Glomerular Filtration Rate > 60.0, Blood Urea Nitrogen 16, Creatinine 1.20, Sodium Level 139, Potassium Level 4.1, Chloride Level 108H, Carbon Dioxide Level 29, Calcium Level 8.0L CBC/BMP Laboratory Tests 11/20/18 19:23 Red Blood Count 4.33, Mean Corpuscular Volume 95.4, Mean Corpuscular Hemoglobin 32.1, Mean Corpuscular Hemoglobin Concent 33.7, Red Cell Distribution Width 14.5, Calcium Level 7.9 L 11/21/18 05:47 Red Blood Count 4.06 L, Mean Corpuscular Volume 96.1 H, Mean Corpuscular Hemoglobin 31.8, Mean Corpuscular Hemoglobin Concent 33.1, Red Cell Distribution Width 14.6 H, Calcium Level 8.0 L Assessment/Plan Date Seen The patient was seen on 11/21/18. Patient Summary This is a 68 y/o M POD1 s/p RALP. We will order artificial tears to help w/ eye irritation. His labs and vitals are w/i normal limits. UOP has been good. Plan/VTE VTE Prophylaxis Ordered?: Yes VTE Exclusion Mechanical Proph: N/A:VTE Prophy Ordered VTE Exclusion Pharmacological: N/A:VTE Prophy Ordered Plan/Urinary Catheter Urinary Catheter: Other Catheter: (catheter will need to stay in for 7-10 days for healing of vesicourethral anastomosis) Plan - d/c IVF - strict I/Os - encourage PO fluids - percocet prn pain - artificial tears - strict I/Os - SCDs when in bed - SQH - incentive spirometry - advance diet as tolerated ROGELIO GALO MD Nov 21, 2018 08:57
[2018-11-21] MEDS ORDERED: CitaloPRAM (CeleXA) 20 MG TAB PO SCH (09:00)
[2018-11-21] MEDS ORDERED: FEXOFENADINE 60 MG TAB PO SCH (09:00)
[2018-11-21] MEDS ORDERED: FUROSEMIDE 20 MG/2 ML VIAL (J1940) IV ONE (09:00)
[2018-11-21] MEDS ORDERED: LACRILUBE (AKWA TEARS) OPHTH OINT 3.5 GM OD ONE (09:00)
[2018-11-21] MEDS ORDERED: clonazePAM 0.5 MG TAB PO SCH (09:00)
[2018-11-21] MEDS ORDERED: SYMBICORT 80/4.5MCG INHALER 6GM INH SCH (09:00)
[2018-11-21 14:20] VITALS: BP 126/77
[2018-11-21] MEDS ORDERED: COLA100C5 PO (16:00)
[2018-11-21] MEDS ORDERED: OXYC1TAB23 PO (16:01)
[2018-11-21] MEDS ORDERED: NON-325T5 PO (16:09)
--- NOTE | 2018-11-23 20:29 | DSES ---
DATE OF ADMISSION: 11/20/2018 DATE OF DISCHARGE: 11/21/2018 ADMISSION DIAGNOSIS: Prostate cancer. DISCHARGE DIAGNOSIS: Prostate cancer. ADMITTING PHYSICIAN: Byron Wilson MD DISCHARGING PHYSICIAN: Byron Wilson MD PROCEDURES PERFORMED: Robotic assisted laparoscopic radical prostatectomy on 11/20/2018. HISTORY OF PRESENT ILLNESS: This is a 68-year-old male who underwent the above listed procedure and was admitted to the hospital postoperatively. HOSPITALIZATION COURSE: The patient's postoperative course was unremarkable. On postoperative day #1, he did note a moderate amount of right eye discomfort and this improved with artificial tears ointment. He had very good incisional pain control with oral pain medication. He is ambulating well. He has tolerated a regular diet. All of his labs were within acceptable limits. He had excellent urine output from his catheter and minimal output from his Alex-Leger drain. He was deemed ready for discharge home on postoperative day #1. His Alex-Leger drain was removed prior to discharge. He was discharged home with his catheter in place with the plan for him to followup in the clinic in approximately 10 days for catheter removal and pathology results.
== END 2018-11-21 16:45 | disposition home or self-care (01) | DRG 708 ==
LOC: M OR 10:53 → M MS5PR 20:05
PROVIDERS: ADMIT Urology; ATTEND Urology
PROC: 8E0W4CZ Robotic Assisted Procedure of Trunk Region, Percutaneous Endoscopic Approach (ICD-10-PCS; 2018-11-20)
PROC: 0VT04ZZ Resection of Prostate, Percutaneous Endoscopic Approach (ICD-10-PCS; principal; 2018-11-20 12:45)
DX: C61 Malignant neoplasm of prostate (principal); H57.11 Ocular pain, right eye; J45.20 Mild intermittent asthma, uncomplicated; F41.0 Panic disorder [episodic paroxysmal anxiety]; Z98.41 Cataract extraction status, right eye; Z98.42 Cataract extraction status, left eye; Z86.010 Personal history of colon polyps; Z87.891 Personal history of nicotine dependence; Z79.899 Other long term (current) drug therapy

== ENCOUNTER → 2019-01-14 | Outpatient (CLI) | payer MEDICARE, MEDICAID ==
[~2019-01-14] MED LIST changes: -CLON0.5T2 PO; +CLON0.5T8 PO; +COLA100C5 PO; -LIDOCAINE 2% INJ 100 MG/5 ML SDV (FOR ANES.) As Ordered ONE; -MIDAZOLAM INJ 2 MG/2 ML VIAL (J2250) As Ordered ONE; +NON-325T5 PO; -ONDANSETRON 4MG/2ML VIAL (J2405) As Ordered ONE; +OXYC1TAB23 PO; -ROCURONIUM BROMIDE 50 MG/5 ML VIAL As Ordered ONE; -SUGAMMADEX SODIUM 500 MG/5 ML VIAL (BRIDION) As Ordered ONE; -dexameTHASONE 4 MG/ML 1ML VIAL (J1100) As Ordered ONE; -fentaNYL 250 MCG/5 ML INJECTION (J3010) As Ordered ONE; -propofoL 200 MG/20 ML VIAL As Ordered ONE
== END ==
LOC: M SMT 08:50
PROVIDERS: ATTEND Urology
DX: C61 Malignant neoplasm of prostate (principal)

== ENCOUNTER → 2019-05-04 | Outpatient (REF) | payer MEDICARE, MEDICAID ==
[~2019-05-04] MED LIST changes: +CLON0.5T2 PO; -CLON0.5T8 PO
== END ==
LOC: M SFHCADAM 16:13
PROVIDERS: ATTEND Urology
DX: C61 Malignant neoplasm of prostate (principal)

== ENCOUNTER → 2019-06-19 | Outpatient (REF) | payer MEDICARE, MEDICAID ==
[2019-06-19 13:31] LABS: BASO % 0.6 % (0.0-1.0); EOS # 0.6 10^3/uL (0.0-0.5); EOS % 9.8 % (0.0-3.0); HEMATOCRIT 48.9 % (42.0-52.0); LYMPH # 1.1 10^3/uL (1.5-5.0); LYMPH % 16.9 % (24.0-44.0); MEAN CORPUSCULAR HEMOGLOBIN 31.1 pg (27.0-33.0); MEAN CORPUSCULAR HGB CONC 32.7 g/dl (32.0-36.5); MEAN CORPUSCULAR VOLUME 95.1 fl (80.0-96.0); MONO # 0.5 10^3/uL (0.0-0.8); MONO % 8.5 % (0.0-5.0); PLATELET COUNT, AUTOMATED 311 10^3/uL (150-450); RED BLOOD COUNT 5.14 10^6/uL (4.30-6.10); WHITE BLOOD COUNT 6.2 10^3/uL (4.0-10.0)
[2019-06-19 13:44] LABS: ALBUMIN 3.6 GM/DL (3.2-5.2); ALT/SGPT 31 U/L (12-78); BILIRUBIN,TOTAL 0.4 MG/DL (0.2-1.0); BLOOD UREA NITROGEN 13 MG/DL (7-18); CALCIUM LEVEL 9.2 MG/DL (8.8-10.2); CARBON DIOXIDE LEVEL 29 MEQ/L (21-32); CHLORIDE LEVEL 107 MEQ/L (98-107); CHOLESTEROL LEVEL 197 MG/DL (<200); CHOLESTEROL RISK RATIO 3.126 (<5); CREATININE FOR GFR 1.21 MG/DL (0.70-1.30); GLOMERULAR FILTRATION RATE > 60.0 (>49); GLUCOSE, FASTING 103 MG/DL (70-100); HDL CHOLESTEROL 63 MG/DL (>40); LDL CHOLESTEROL 120 MG/DL (<100); NON-HDL-C 134 MG/DL; POTASSIUM SERUM 4.8 MEQ/L (3.5-5.1); SODIUM LEVEL 141 MEQ/L (136-145); TOTAL PROTEIN 7.1 GM/DL (6.4-8.2); TRIGLYCERIDES LEVEL 70 MG/DL (<150)
[2019-06-20 15:09] LABS: PSA TOTAL <0.1 ng/mL (0.0-4.0)
== END ==
LOC: M SFHCADAM 09:05
PROVIDERS: ATTEND Physician Assistant Medical
DX: C61 Malignant neoplasm of prostate (principal); K51.90 Ulcerative colitis, unspecified, without complications; F41.0 Panic disorder [episodic paroxysmal anxiety]; J45.40 Moderate persistent asthma, uncomplicated; R97.20 Elevated prostate specific antigen [PSA]

== ENCOUNTER → 2019-09-28 | Outpatient (CLI) | payer MEDICARE, MEDICAID ==
[~2019-09-28] MED LIST changes: +ACET-838 PO; -NON-325T5 PO
--- NOTE | 2019-10-01 08:48 | REP ---
Clinical: Right knee pain. Technique: AP, lateral, bilateral oblique and sunrise views of the right knee. Findings: There is increased sclerosis with joint space narrowing and marginal spurring involving the lateral tibiofemoral compartment along with mild ipsilateral subluxation. Lateral and sunrise views demonstrate increase sclerosis along the anterior and posterior patellar margins with subtle marginal spurring and prepatellar soft tissue swelling. 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 Electronically Signed by Mich Pandey MD 10/01/2019 08:39 A
== END ==
LOC: M ADAMS 15:09
PROVIDERS: ATTEND Physician Assistant Medical
DX: M17.11 Unilateral primary osteoarthritis, right knee (principal); M25.561 Pain in right knee
CPT/HCPCS: 73564; G0463

== ENCOUNTER → 2019-10-19 | Outpatient (REF) | payer MEDICARE, MEDICAID ==
[~2019-10-19] MED LIST changes: -ACET-838 PO; +NON-325T5 PO
== END ==
LOC: M LAB REF 17:09
PROVIDERS: ATTEND Dermatology
DX: D22.5 Melanocytic nevi of trunk (principal)

== ENCOUNTER → 2019-11-03 | Outpatient (REF) | payer MEDICARE, MEDICAID | LOC: M SFHCADAM 09:04 | PROVIDERS: ATTEND Student in an Organized Health Care Education/Training Program | DX: C61 Malignant neoplasm of prostate (principal) ==

== ENCOUNTER → 2020-04-29 | Outpatient (REF) | payer MEDICARE, MEDICAID ==
[~2020-04-29] MED LIST changes: +ACET-838 PO; -NON-325T5 PO
== END ==
LOC: M SFHCADAM 08:50
PROVIDERS: ATTEND Urology
DX: C61 Malignant neoplasm of prostate (principal)

== ENCOUNTER → 2020-05-27 | Outpatient (REF) | payer MEDICARE, MEDICAID ==
[2020-05-27 13:10] LABS: BASO % 0.3 % (0.0-1.0); EOS # 0.4 10^3/uL (0.0-0.5); EOS % 5.3 % (0.0-3.0); HEMATOCRIT 47.1 % (42.0-52.0); HEMOGLOBIN 15.7 g/dl (13.5-17.5); LYMPH # 1.2 10^3/uL (1.5-5.0); LYMPH % 18.5 % (24.0-44.0); MEAN CORPUSCULAR HEMOGLOBIN 32.2 pg (27.0-33.0); MEAN CORPUSCULAR HGB CONC 33.3 g/dl (32.0-36.5); MEAN CORPUSCULAR VOLUME 96.7 fl (80.0-96.0); MONO # 0.6 10^3/uL (0.0-0.8); MONO % 9.5 % (2.0-8.0); NEUTROPHILS # 4.4 10^3/uL (1.5-8.5); NEUTROPHILS % 66.2 % (36.0-66.0); PLATELET COUNT, AUTOMATED 268 10^3/uL (150-450); RED BLOOD COUNT 4.87 10^6/uL (4.30-6.10); WHITE BLOOD COUNT 6.7 10^3/uL (4.0-10.0)
[2020-05-27 13:38] LABS: HEMOGLOBIN A1c 5.9 %
[2020-05-27 13:42] LABS: ALBUMIN 3.8 GM/DL (3.2-5.2); ALT/SGPT 50 U/L (12-78); BILIRUBIN,TOTAL 0.5 MG/DL (0.2-1.0); BLOOD UREA NITROGEN 15 MG/DL (7-18); CALCIUM LEVEL 8.6 MG/DL (8.8-10.2); CARBON DIOXIDE LEVEL 28 MEQ/L (21-32); CHLORIDE LEVEL 107 MEQ/L (98-107); CHOLESTEROL LEVEL 174 MG/DL (<200); CHOLESTEROL RISK RATIO 2.636 (<5); CREATININE FOR GFR 1.15 MG/DL (0.70-1.30); GLOMERULAR FILTRATION RATE > 60.0 (>49); GLUCOSE, FASTING 106 MG/DL (70-100); HDL CHOLESTEROL 66 MG/DL (>40); LDL CHOLESTEROL 98 MG/DL (<100); NON-HDL-C 108 MG/DL; POTASSIUM SERUM 4.8 MEQ/L (3.5-5.1); SODIUM LEVEL 141 MEQ/L (136-145); TOTAL PROTEIN 6.9 GM/DL (6.4-8.2); TRIGLYCERIDES LEVEL 51 MG/DL (<150)
== END ==
LOC: M SFHCADAM 09:33
PROVIDERS: ATTEND Physician Assistant Medical
DX: J45.40 Moderate persistent asthma, uncomplicated (principal); K51.90 Ulcerative colitis, unspecified, without complications; F41.0 Panic disorder [episodic paroxysmal anxiety]; E78.2 Mixed hyperlipidemia; Z79.899 Other long term (current) drug therapy

== ENCOUNTER → 2020-08-07 | Outpatient (CLI) | payer MEDICARE, MEDICAID ==
[~2020-08-07] MED LIST changes: -ACET-838 PO; +ACET32TAB PO; +LISI10TA22; +SIMV20TA22
== END ==
LOC: M LABSMTC 11:00
PROVIDERS: ATTEND Anesthesiology
DX: Z01.812 Encounter for preprocedural laboratory examination (principal); Z11.52 Encounter for screening for COVID-19

== ENCOUNTER 2020-08-12 10:19 | Day surgery (SDC) | payer MEDICAID, MEDICARE ==
[~2020-08-12] VITALS: Ht 182.9 cm; Wt 84.4 kg
[~2020-08-12 10:19] MED LIST changes: +NS 1,000 ML IV ONE
[2020-08-12] MEDS ORDERED: LIDOCAINE 2% 100MG/5ML SDV (FOR ANES.) As Ordered ONE (10:57)
[2020-08-12] MEDS ORDERED: propofoL 200 MG/20 ML VIAL As Ordered ONE (10:57)
[2020-08-12] MEDS ORDERED: fentaNYL 100 MCG/2 ML INJECTION (J3010) As Ordered ONE (11:01)
[2020-08-12] MEDS ORDERED: ePHEDrine SULFATE 25 MG/5 ML(5MG/ML) SYRINGE As Ordered ONE (11:11)
--- NOTE | 2020-08-12 11:17 | ROOR ---
Patient Name: Todd Najera Procedure Date: 08/12/2020 10:58 AM Date of : 1950 Age: 70 Room: [facility] Gender: Male Note Status: Finalized Procedure: Upper Endoscopy + Biopsies Indications: Heartburn, Exclusion of Porter's esophagus Providers: Andrade Gaona MD Referring MD: ARIA Nicholas Requesting Provider: Medicines: Monitored Anesthesia Care Complications: No immediate complications. Procedure: Pre-Anesthesia Assessment: - The heart rate, respiratory rate, oxygen saturations, blood pressure, adequacy of pulmonary ventilation, and response to care were monitored throughout the procedure. The Endoscope was introduced through the mouth, and advanced to the second part of duodenum. The upper GI endoscopy was accomplished without difficulty. The patient tolerated the procedure well. Findings: The Z-line was regular and was found 40 cm from the incisors. Multiple biopsies were obtained with cold forceps for evaluation to rule out Porter's Esophagus randomly at the gastroesophageal junction. A large hiatal hernia was present. No other significant abnormalities were identified in a careful examination of the stomach. Biopsies were taken with a cold forceps in the gastric antrum for Helicobacter pylori testing. The exam of the duodenum was otherwise normal. Impression: - Z-line regular, 40 cm from the incisors. - Large hiatal hernia. - Multiple biopsies were obtained at the gastroesophageal junction. - Biopsies were taken with a cold forceps for Helicobacter pylori testing. - The examination was otherwise normal. Recommendation: - Patient has a contact number available for emergencies. The signs and symptoms of potential delayed complications were discussed with the patient. Return to normal activities tomorrow. Written discharge instructions were provided to the patient. - High fiber diet. - Discharge patient to home. - Continue present medications. - Await pathology results. - Telephone GI clinic for pathology results in 1 week. - Repeat upper endoscopy for surveillance based on pathology results. - Return to referring physician. - The findings and recommendations were discussed with the patient. Procedure Code(s): --- Professional --- 96167, Esophagogastroduodenoscopy, flexible, transoral; with biopsy, single or multiple Diagnosis Code(s): --- Professional --- K44.9, Diaphragmatic hernia without obstruction or gangrene R12, Heartburn CPT copyright 2019 [employer]. All rights reserved. The codes documented in this report are preliminary and upon graphite mill operator review may be revised to meet current compliance requirements. Andrade Gaona MD Andrade Gaona MD 08/12/2020 11:17:29 AM Electronically signed by Andrade Gaona MD Number of Addenda: 0 Note Initiated On: 08/12/2020 10:58 AM Estimated Blood Loss: Estimated blood loss: none.
--- NOTE | 2020-08-12 11:40 | ROOR ---
Patient Name: Todd Najera Procedure Date: 08/12/2020 10:59 AM Date of : 1950 Age: 70 Room: [facility] Gender: Male Note Status: Finalized Procedure: Total Colonoscopy to Cecum + Bx. To r/o Microscopic Colitis Indications: Follow-up of ulcerative colitis Providers: Andrade Gaona MD Referring MD: ARIA Nicholas Requesting Provider: Medicines: Monitored Anesthesia Care Complications: No immediate complications. Procedure: Pre-Anesthesia Assessment: - The heart rate, respiratory rate, oxygen saturations, blood pressure, adequacy of pulmonary ventilation, and response to care were monitored throughout the procedure. The Colonoscope was introduced through the anus and advanced to the cecum, identified by appendiceal orifice and ileocecal valve. The colonoscopy was performed without difficulty. The patient tolerated the procedure well. The quality of the bowel preparation was good. Findings: The perianal and digital rectal examinations were normal. Non-bleeding internal hemorrhoids were found during retroflexion. The hemorrhoids were small and Grade I (internal hemorrhoids that do not prolapse). Multiple small and large-mouthed diverticula were found in the recto-sigmoid colon, sigmoid colon and descending colon. The exam was otherwise without abnormality on direct and retroflexion views. Biopsies for histology were taken with a cold forceps from the ascending colon, transverse colon, descending colon and rectosigmoid colon for evaluation of microscopic colitis. The exam was otherwise without abnormality. Impression: - Non-bleeding internal hemorrhoids. - Diverticulosis in the recto-sigmoid colon, in the sigmoid colon and in the descending colon. - The examination was otherwise normal on direct and retroflexion views. - The examination was otherwise normal. - Biopsies were taken with a cold forceps from the ascending colon, transverse colon, descending colon and rectosigmoid colon for evaluation of microscopic colitis. - The exam was otherwise normal to the cecum. Recommendation: - Patient has a contact number available for emergencies. The signs and symptoms of potential delayed complications were discussed with the patient. Return to normal activities tomorrow. Written discharge instructions were provided to the patient. - High fiber diet. - Discharge patient to home. - Continue present medications. - Await pathology results. - Telephone GI clinic for pathology results in 1 week. - Return to referring physician. - The findings and recommendations were discussed with the patient. Procedure Code(s): --- Professional --- 16148, Colonoscopy, flexible; with biopsy, single or multiple Diagnosis Code(s): --- Professional --- K64.0, First degree hemorrhoids K51.90, Ulcerative colitis, unspecified, without complications K57.30, Diverticulosis of large intestine without perforation or abscess without bleeding CPT copyright 2019 [employer]. All rights reserved. The codes documented in this report are preliminary and upon image assembler review may be revised to meet current compliance requirements. Andrade Gaona MD Andrade Gaona MD 08/12/2020 11:39:21 AM Electronically signed by Andrade Gaona MD Number of Addenda: 0 Note Initiated On: 08/12/2020 10:59 AM Estimated Blood Loss: Estimated blood loss: none.
[2020-08-12 12:01] VITALS: BP 126/77
== END 2020-08-12 12:00 | disposition home or self-care (01) ==
LOC: M OPP 10:19
PROVIDERS: ATTEND Internal Medicine Gastroenterology
DX: K57.30 Diverticulosis of large intestine without perforation or abscess without bleeding (principal); K64.0 First degree hemorrhoids; K51.90 Ulcerative colitis, unspecified, without complications; K44.9 Diaphragmatic hernia without obstruction or gangrene; R12 Heartburn; Z79.899 Other long term (current) drug therapy; Z87.891 Personal history of nicotine dependence; Z85.46 Personal history of malignant neoplasm of prostate
CPT/HCPCS: 43239; 45380; 88305; J3010

== ENCOUNTER → 2020-10-19 | Outpatient (REF) | payer MEDICARE, MEDICAID ==
[~2020-10-19] MED LIST changes: +BACTDSTA PO; -NS 1,000 ML IV ONE; -SULF1TAB93 PO
== END ==
LOC: M LAB REF 17:38
PROVIDERS: ATTEND Physician Assistant
DX: D22.71 Melanocytic nevi of right lower limb, including hip (principal)
CPT/HCPCS: 11102; 88305; G0463

== ENCOUNTER → 2020-11-04 | Outpatient (REF) | payer MEDICARE, MEDICAID | LOC: M SFHCADAM 12:03 | PROVIDERS: ATTEND Urology | DX: C61 Malignant neoplasm of prostate (principal) ==

== ENCOUNTER → 2020-11-28 | Outpatient (REF) | payer MEDICARE, MEDICAID ==
[2020-11-28 12:51] LABS: BASO % 0.4 % (0.0-1.0); EOS # 0.4 10^3/uL (0.0-0.5); EOS % 6.5 % (0.0-3.0); HEMATOCRIT 45.5 % (42.0-52.0); HEMOGLOBIN 15.1 g/dl (13.5-17.5); LYMPH # 1.1 10^3/uL (1.5-5.0); MEAN CORPUSCULAR HEMOGLOBIN 32.4 pg (27.0-33.0); MEAN CORPUSCULAR HGB CONC 33.2 g/dl (32.0-36.5); MEAN CORPUSCULAR VOLUME 97.6 fl (80.0-96.0); MONO # 0.5 10^3/uL (0.0-0.8); MONO % 7.7 % (2.0-8.0); NEUTROPHILS # 4.7 10^3/uL (1.5-8.5); PLATELET COUNT, AUTOMATED 278 10^3/uL (150-450); RED BLOOD COUNT 4.66 10^6/uL (4.30-6.10); WHITE BLOOD COUNT 6.8 10^3/uL (4.0-10.0)
[2020-11-28 13:26] LABS: ALBUMIN 3.5 GM/DL (3.2-5.2); ALT/SGPT 30 U/L (12-78); BILIRUBIN,TOTAL 0.6 MG/DL (0.2-1.0); BLOOD UREA NITROGEN 14 MG/DL (7-18); CALCIUM LEVEL 8.4 MG/DL (8.8-10.2); CARBON DIOXIDE LEVEL 26 MEQ/L (21-32); CHLORIDE LEVEL 109 MEQ/L (98-107); CHOLESTEROL LEVEL 143 MG/DL (<200); CREATININE FOR GFR 1.19 MG/DL (0.70-1.30); GLOMERULAR FILTRATION RATE > 60.0 (>42); GLUCOSE, FASTING 122 MG/DL (70-100); HDL CHOLESTEROL 55 MG/DL (>40); LDL CHOLESTEROL 73 MG/DL (<100); NON-HDL-C 88 MG/DL; POTASSIUM SERUM 4.7 MEQ/L (3.5-5.1); SODIUM LEVEL 140 MEQ/L (136-145); TOTAL 25(OH) VITAMIN D 30.8 NG/ML (30.0-100.0); TOTAL PROTEIN 6.4 GM/DL (6.4-8.2); TRIGLYCERIDES LEVEL 73 MG/DL (<150)
== END ==
LOC: M SFHCADAM 08:42
PROVIDERS: ATTEND Physician Assistant Medical
DX: K51.90 Ulcerative colitis, unspecified, without complications (principal); F41.0 Panic disorder [episodic paroxysmal anxiety]; J45.40 Moderate persistent asthma, uncomplicated; I10 Essential (primary) hypertension; Z79.51 Long term (current) use of inhaled steroids; Z79.899 Other long term (current) drug therapy

== ENCOUNTER → 2020-12-09 | Outpatient (REF) | payer MEDICARE, MEDICAID | LOC: M LAB REF 13:48 | PROVIDERS: ATTEND Dermatology | DX: D23.71 Other benign neoplasm of skin of right lower limb, including hip (principal) ==

== ENCOUNTER → 2021-05-22 | Outpatient (REF) | payer MEDICARE, MEDICAID | LOC: M LABDRWAD 16:57 | PROVIDERS: ATTEND Urology | DX: C61 Malignant neoplasm of prostate (principal) ==

== ENCOUNTER → 2021-08-08 | Outpatient (REF) | payer MEDICARE ==
[2021-08-08 12:43] LABS: BASO % 0.4 % (0.0-1.0); EOS # 0.4 10^3/uL (0.0-0.5); EOS % 6.3 % (0.0-3.0); HEMATOCRIT 45.8 % (42.0-52.0); HEMOGLOBIN 15.3 g/dl (13.5-17.5); LYMPH # 0.8 10^3/uL (1.5-5.0); LYMPH % 12.5 % (24.0-44.0); MEAN CORPUSCULAR HEMOGLOBIN 32.7 pg (27.0-33.0); MEAN CORPUSCULAR HGB CONC 33.4 g/dl (32.0-36.5); MEAN CORPUSCULAR VOLUME 97.9 fl (80.0-96.0); MONO # 0.7 10^3/uL (0.0-0.8); NEUTROPHILS # 4.6 10^3/uL (1.5-8.5); NEUTROPHILS % 69.4 % (36.0-66.0); PLATELET COUNT, AUTOMATED 249 10^3/uL (150-450); RED BLOOD COUNT 4.68 10^6/uL (4.30-6.10); WHITE BLOOD COUNT 6.7 10^3/uL (4.0-10.0)
[2021-08-08 12:57] LABS: ALBUMIN 3.7 GM/DL (3.2-5.2); ALT/SGPT 28 U/L (12-78); BILIRUBIN,TOTAL 0.4 MG/DL (0.2-1.0); BLOOD UREA NITROGEN 17 MG/DL (7-18); CALCIUM LEVEL 9.6 MG/DL (8.8-10.2); CARBON DIOXIDE LEVEL 28 MEQ/L (21-32); CHLORIDE LEVEL 109 MEQ/L (98-107); CHOLESTEROL LEVEL 154 MG/DL (<200); CHOLESTEROL RISK RATIO 2.298 (<5); CREATININE FOR GFR 1.22 MG/DL (0.70-1.30); GLOMERULAR FILTRATION RATE > 60.0 (>42); GLUCOSE, FASTING 141 MG/DL (70-100); HDL CHOLESTEROL 67 MG/DL (>40); LDL CHOLESTEROL 77 MG/DL (<100); NON-HDL-C 87 MG/DL; POTASSIUM SERUM 4.2 MEQ/L (3.5-5.1); SODIUM LEVEL 140 MEQ/L (136-145); TOTAL 25(OH) VITAMIN D 53.3 NG/ML (30.0-100.0); TOTAL PROTEIN 6.6 GM/DL (6.4-8.2); TRIGLYCERIDES LEVEL 52 MG/DL (<150)
[2021-08-08 13:26] LABS: HEMOGLOBIN A1c 5.7 %
== END ==
LOC: M SFHCADAM 07:54
PROVIDERS: ATTEND Physician Assistant Medical
DX: E78.2 Mixed hyperlipidemia (principal); I10 Essential (primary) hypertension; N40.1 Benign prostatic hyperplasia with lower urinary tract symptoms; R73.01 Impaired fasting glucose; Z79.899 Other long term (current) drug therapy

== ENCOUNTER → 2021-11-07 | Outpatient (REF) | payer MEDICARE ==
[~2021-11-07] MED LIST changes: +ALBU2.5V10 INH; -ALBU83IN INH
== END ==
LOC: M SFHCADAM 11:19
PROVIDERS: ATTEND Urology
DX: C61 Malignant neoplasm of prostate (principal)

== ENCOUNTER → 2021-11-28 | Outpatient (CLI) | payer MEDICARE | LOC: M SOG 08:12 | PROVIDERS: ATTEND Orthopaedic Surgery Adult Reconstructive Orthopaedic Surgery | DX: M17.11 Unilateral primary osteoarthritis, right knee (principal) ==

== ENCOUNTER 2022-01-30 08:10 | Outpatient (RCR) | payer MEDICARE | END 2022-02-12 | LOC: M PT 08:10 | PROVIDERS: ATTEND Orthopaedic Surgery Adult Reconstructive Orthopaedic Surgery | DX: M17.0 Bilateral primary osteoarthritis of knee (principal) ==

== ENCOUNTER → 2022-02-05 | Outpatient (REF) | payer MEDICARE ==
[~2022-02-05] MED LIST changes: +ECOT81TA5 PO; +LISI10TA22 PO; +OMEP1CAP73 PO; +OXYC-1 PO; +SIMV20TA22 PO; +SYMB16INH INH
[2022-02-05 17:42] LABS: BASO % 0.4 % (0.0-1.0); EOS # 0.6 10^3/uL (0.0-0.5); EOS % 5.7 % (0.0-3.0); HEMATOCRIT 43.6 % (42.0-52.0); HEMOGLOBIN 14.3 g/dl (13.5-17.5); LYMPH # 1.5 10^3/uL (1.5-5.0); MEAN CORPUSCULAR HEMOGLOBIN 32.3 pg (27.0-33.0); MEAN CORPUSCULAR HGB CONC 32.8 g/dl (32.0-36.5); MEAN CORPUSCULAR VOLUME 98.4 fl (80.0-96.0); MONO # 0.7 10^3/uL (0.0-0.8); MONO % 6.9 % (2.0-8.0); NEUTROPHILS % 71.7 % (36.0-66.0); PLATELET COUNT, AUTOMATED 319 10^3/uL (150-450); RED BLOOD COUNT 4.43 10^6/uL (4.30-6.10); WHITE BLOOD COUNT 9.8 10^3/uL (4.0-10.0)
[2022-02-05 18:17] LABS: ALBUMIN 3.3 GM/DL (3.2-5.2); ALT/SGPT 23 U/L (12-78); BILIRUBIN,TOTAL 0.5 MG/DL (0.2-1.0); BLOOD UREA NITROGEN 14 MG/DL (7-18); CALCIUM LEVEL 9.1 MG/DL (8.8-10.2); CARBON DIOXIDE LEVEL 28 MEQ/L (21-32); CHLORIDE LEVEL 109 MEQ/L (98-107); CREATININE FOR GFR 1.18 MG/DL (0.70-1.30); GLOMERULAR FILTRATION RATE > 60.0 (>42); GLUCOSE, FASTING 119 MG/DL (70-100); POTASSIUM SERUM 4.2 MEQ/L (3.5-5.1); SODIUM LEVEL 141 MEQ/L (136-145); TOTAL PROTEIN 6.6 GM/DL (6.4-8.2)
== END ==
LOC: M SFHCADAM 14:52
PROVIDERS: ATTEND Physician Assistant Medical
DX: Z01.818 Encounter for other preprocedural examination (principal); Z79.899 Other long term (current) drug therapy

== ENCOUNTER → 2022-02-06 | Outpatient (CLI) | payer MEDICARE ==
[~2022-02-06] MED LIST changes: -ECOT81TA5 PO; -LISI10TA22 PO; -OMEP1CAP73 PO; -OXYC-1 PO; -SIMV20TA22 PO; -SYMB16INH INH
== END ==
LOC: M RAD 10:50
PROVIDERS: ATTEND Orthopaedic Surgery Adult Reconstructive Orthopaedic Surgery
DX: M17.0 Bilateral primary osteoarthritis of knee (principal)

== ENCOUNTER → 2022-02-15 | Outpatient (CLI) | payer MEDICARE | LOC: M LABSMTC 09:40 | PROVIDERS: ATTEND Anesthesiology | DX: Z01.812 Encounter for preprocedural laboratory examination (principal); Z20.822 Contact with and (suspected) exposure to COVID-19 ==

== ENCOUNTER 2022-02-20 06:16 | Observation (INO) | payer MEDICARE ==
[~2022-02-20] VITALS: Ht 182.9 cm; Wt 82.7 kg
[~2022-02-20 06:16] MED LIST changes: +ACETAMINOPHEN 500 MG TAB PO ONE; +NAPROXEN 250 MG TAB PO ONE; +NS 1,000 ML IV ONE; +PREGABALIN 25 MG CAP (LYRICA) PO ONE; +ceFAZolin SOD 2 GM in IV 1 EA IV ONE; +dexameTHASONE 4 MG/ML 1ML VIAL (J1100 PER 1MG) IV ONE
[2022-02-20] MEDS ORDERED: LR 1,000 ML IV SCH ×3 (07:00→10:15)
[2022-02-20] MEDS ORDERED: TRANEXAMIC ACID 100 MG/ML 10ML VIAL As Ordered ONE (07:17)
[2022-02-20] MEDS ORDERED: ROPIVA 125MG/EPINEPH 0.25MG/CLONID 40MCG/KETOR 15MG IN NS 50ML SYRINGE PA ONE (07:30)
[2022-02-20] MEDS ORDERED: dexameTHASONE 4 MG/ML 1ML VIAL (J1100 PER 1MG) As Ordered ONE (08:00)
[2022-02-20] MEDS ORDERED: MIDAZOLAM INJ 2MG/2ML VIAL (J2250 PER 1MG) As Ordered ONE (08:00)
[2022-02-20] MEDS ORDERED: fentaNYL 100 MCG/2 ML INJECTION As Ordered ONE (08:00)
[2022-02-20] MEDS ORDERED: propofoL 200 MG/20 ML VIAL As Ordered ONE ×3 (08:00→08:42)
[2022-02-20] MEDS ORDERED: PHENYLephrine 500MCG 5ML (100MCG/ML) SYRINGE As Ordered ONE (08:21)
[2022-02-20] MEDS ORDERED: ePHEDrine SULFATE 25 MG/5 ML(5MG/ML) SYRINGE As Ordered ONE (08:21)
[2022-02-20] MEDS ORDERED: PHENYLEPHRINE 10MG/ML 1ML VIAL As Ordered ONE (08:24)
[2022-02-20] MEDS ORDERED: ONDANSETRON 4MG 2ML VIAL IV PRN ×2 (09:40→10:15)
[2022-02-20] MEDS ORDERED: fentaNYL 100 MCG/2 ML INJECTION IV PRN (09:40)
[2022-02-20] MEDS ORDERED: oxyCODONE 5MG TAB PO PRN ×3 (09:40→10:15)
[2022-02-20] MEDS ORDERED: MORPHINE 2 MG/ML 1ML VIAL IV PRN (09:40)
[2022-02-20] MEDS ORDERED: ACETAMINOPHEN TAB 650MG DOSE (2X325MG) PO SCH (10:15)
[2022-02-20] MEDS ORDERED: SENNA 8.6 MG TAB (SENOKOT) PO PRN (10:15)
[2022-02-20] MEDS ORDERED: traMADol 50 MG TAB PO PRN (10:15)
[2022-02-20 12:31] LABS: HEMATOCRIT 42.2 % (42.0-52.0); HEMOGLOBIN 13.9 g/dl (13.5-17.5); MEAN CORPUSCULAR HEMOGLOBIN 32.5 pg (27.0-33.0); MEAN CORPUSCULAR HGB CONC 32.9 g/dl (32.0-36.5); MEAN CORPUSCULAR VOLUME 98.6 fl (80.0-96.0); PLATELET COUNT, AUTOMATED 264 10^3/uL (150-450); RED BLOOD COUNT 4.28 10^6/uL (4.30-6.10); WHITE BLOOD COUNT 12.5 10^3/uL (4.0-10.0)
[2022-02-20 13:15] VITALS: BP 123/77
[2022-02-20 14:00] VITALS: BP 136/90
[2022-02-20 14:16] LABS: ALBUMIN 3.3 GM/DL (3.2-5.2); ALT/SGPT 29 U/L (12-78); BILIRUBIN,TOTAL 0.4 MG/DL (0.2-1.0); BLOOD UREA NITROGEN 18 MG/DL (7-18); CALCIUM LEVEL 8.6 MG/DL (8.8-10.2); CARBON DIOXIDE LEVEL 25 MEQ/L (21-32); CHLORIDE LEVEL 106 MEQ/L (98-107); CREATININE FOR GFR 1.23 MG/DL (0.70-1.30); GLOMERULAR FILTRATION RATE > 60.0 (>42); GLUCOSE, FASTING 151 MG/DL (70-100); POTASSIUM SERUM 4.4 MEQ/L (3.5-5.1); SODIUM LEVEL 136 MEQ/L (136-145); TOTAL PROTEIN 6.3 GM/DL (6.4-8.2)
[2022-02-20 15:00] VITALS: BP 108/75
[2022-02-20 16:00] VITALS: BP 111/77
[2022-02-20] MEDS: ceFAZolin SOD 2 GM in IV 1 EA IV SCH (16:23)
[2022-02-20 17:00] VITALS: BP 105/75
[2022-02-20] MEDS: ACETAMINOPHEN TAB 650MG DOSE (2X325MG) PO SCH (18:22)
[2022-02-20] MEDS: DOCUSATE SODIUM 100MG CAPSULE PO SCH (21:17)
[2022-02-20] MEDS: ASPIRIN 81MG ENTERIC TABLET PO SCH (21:17)
[2022-02-20] MEDS: NAPROXEN 250 MG TAB PO SCH (21:18)
[2022-02-20 21:38] VITALS: BP 113/74
[2022-02-21] MEDS: ACETAMINOPHEN TAB 650MG DOSE (2X325MG) PO SCH ×3 (00:30→12:20)
[2022-02-21] MEDS: ceFAZolin SOD 2 GM in IV 1 EA IV SCH (00:30)
[2022-02-21 01:54] VITALS: BP 112/74
[2022-02-21 05:27] VITALS: BP 132/80
[2022-02-21] MEDS ORDERED: SIMV20TA22 PO (06:05)
[2022-02-21] MEDS ORDERED: SYMB16INH INH (06:05)
[2022-02-21] MEDS ORDERED: LISI10TA22 PO (06:05)
[2022-02-21] MEDS ORDERED: OMEP1CAP73 PO (06:06)
[2022-02-21] MEDS ORDERED: HOME MED LIST COMPLETE! XX SCH (06:10)
[2022-02-21 06:12] LABS: HEMATOCRIT 38.3 % (42.0-52.0); HEMOGLOBIN 12.8 g/dl (13.5-17.5); MEAN CORPUSCULAR HEMOGLOBIN 32.7 pg (27.0-33.0); MEAN CORPUSCULAR HGB CONC 33.4 g/dl (32.0-36.5); MEAN CORPUSCULAR VOLUME 97.7 fl (80.0-96.0); PLATELET COUNT, AUTOMATED 244 10^3/uL (150-450); RED BLOOD COUNT 3.92 10^6/uL (4.30-6.10); WHITE BLOOD COUNT 15.2 10^3/uL (4.0-10.0)
[2022-02-21 07:02] LABS: BLOOD UREA NITROGEN 20 MG/DL (7-18); CALCIUM LEVEL 8.6 MG/DL (8.8-10.2); CARBON DIOXIDE LEVEL 24 MEQ/L (21-32); CHLORIDE LEVEL 108 MEQ/L (98-107); CREATININE FOR GFR 1.21 MG/DL (0.70-1.30); GLOMERULAR FILTRATION RATE > 60.0 (>42); GLUCOSE, FASTING 113 MG/DL (70-100); POTASSIUM SERUM 4.2 MEQ/L (3.5-5.1); SODIUM LEVEL 140 MEQ/L (136-145)
[2022-02-21] MEDS: DOCUSATE SODIUM 100MG CAPSULE PO SCH (08:38)
[2022-02-21] MEDS: NAPROXEN 250 MG TAB PO SCH (08:39)
[2022-02-21] MEDS: ASPIRIN 81MG ENTERIC TABLET PO SCH (08:39)
[2022-02-21] MEDS ORDERED: FERROUS SULFATE 325MG TAB PO SCH (09:00)
[2022-02-21] MEDS ORDERED: ASCORBIC ACID 500 MG TAB PO SCH (09:00)
[2022-02-21] MEDS ORDERED: ECOT81TA5 PO (09:33)
[2022-02-21] MEDS ORDERED: OXYC-1 PO (09:33)
== END 2022-02-21 14:15 | disposition home health service (06) ==
LOC: M SDC 06:16 → M ED INP 06:17 → M MS5PR 13:10
PROVIDERS: ADMIT Internal Medicine; ATTEND Orthopaedic Surgery Adult Reconstructive Orthopaedic Surgery
DX: M17.11 Unilateral primary osteoarthritis, right knee (principal); J45.909 Unspecified asthma, uncomplicated; J44.9 Chronic obstructive pulmonary disease, unspecified; I10 Essential (primary) hypertension; E78.5 Hyperlipidemia, unspecified; F41.9 Anxiety disorder, unspecified; F32.A Depression, unspecified; K21.9 Gastro-esophageal reflux disease without esophagitis; Z85.46 Personal history of malignant neoplasm of prostate; Z90.79 Acquired absence of other genital organ(s); K51.90 Ulcerative colitis, unspecified, without complications; M54.9 Dorsalgia, unspecified; Z79.899 Other long term (current) drug therapy; Z79.51 Long term (current) use of inhaled steroids; Z87.891 Personal history of nicotine dependence
CPT/HCPCS: 27447; 36415; 64454; 73560; 80048; 80053; 85027; 88304; 88311; 96374; 96376; 97110; 97116; 97161; 97165; 97530; C1776; G0378; J0690; J1100; J2250; J2370; J3010; S2900

== ENCOUNTER → 2022-02-23 | Outpatient (REF) | payer MEDICARE ==
[~2022-02-23] MED LIST changes: -ACETAMINOPHEN 500 MG TAB PO ONE; +ECOT81TA5 PO; +LISI10TA22 PO; -NAPROXEN 250 MG TAB PO ONE; -NS 1,000 ML IV ONE; +OMEP1CAP73 PO; +OXYC-1 PO; -PREGABALIN 25 MG CAP (LYRICA) PO ONE; +SIMV20TA22 PO; +SYMB16INH INH; -ceFAZolin SOD 2 GM in IV 1 EA IV ONE; -dexameTHASONE 4 MG/ML 1ML VIAL (J1100 PER 1MG) IV ONE
[2022-02-27 22:32] LABS: HEMATOCRIT 41.9 % (42.0-52.0); HEMOGLOBIN 14.2 g/dl (13.5-17.5); RED BLOOD COUNT 4.33 10^6/uL (4.30-6.10); WHITE BLOOD COUNT 11.3 10^3/uL (4.0-10.0)
[2022-02-27 22:33] LABS: BASO % 0.3 % (0.0-1.0); EOS % 6.7 % (0.0-3.0); LYMPH % 9.2 % (24.0-44.0); MEAN CORPUSCULAR HEMOGLOBIN 32.8 pg (27.0-33.0); MEAN CORPUSCULAR HGB CONC 33.9 g/dl (32.0-36.5); MEAN CORPUSCULAR VOLUME 96.8 fl (80.0-96.0); MONO % 7.9 % (2.0-8.0); NEUTROPHILS # 8.5 10^3/uL (1.5-8.5); NEUTROPHILS % 75.5 % (36.0-66.0); PLATELET COUNT, AUTOMATED 285 10^3/uL (150-450)
[2022-02-27 22:34] LABS: EOS # 0.8 10^3/uL (0.0-0.5); MONO # 0.9 10^3/uL (0.0-0.8)
== END ==
LOC: M SHH 15:53
PROVIDERS: ATTEND Orthopaedic Surgery Adult Reconstructive Orthopaedic Surgery
DX: Z48.89 Encounter for other specified surgical aftercare (principal)

== ENCOUNTER → 2022-03-05 | Outpatient (CLI) | payer MEDICARE | LOC: M SOG 09:02 | PROVIDERS: ATTEND Orthopaedic Surgery Adult Reconstructive Orthopaedic Surgery | DX: M17.12 Unilateral primary osteoarthritis, left knee (principal); Z96.651 Presence of right artificial knee joint ==

== ENCOUNTER → 2022-03-05 | Outpatient (REF) | payer MEDICARE ==
[2022-03-06 13:45] LABS: BASO # 0.1 10^3/uL (0.0-0.2); BASO % 0.6 % (0.0-1.0); EOS # 0.6 10^3/uL (0.0-0.5); EOS % 5.4 % (0.0-3.0); HEMATOCRIT 40.1 % (42.0-52.0); LYMPH # 1.6 10^3/uL (1.5-5.0); LYMPH % 15.6 % (24.0-44.0); MEAN CORPUSCULAR HEMOGLOBIN 32.2 pg (27.0-33.0); MEAN CORPUSCULAR HGB CONC 32.4 g/dl (32.0-36.5); MEAN CORPUSCULAR VOLUME 99.3 fl (80.0-96.0); MONO # 0.8 10^3/uL (0.0-0.8); MONO % 7.9 % (2.0-8.0); NEUTROPHILS # 7.1 10^3/uL (1.5-8.5); NEUTROPHILS % 70.2 % (36.0-66.0); PLATELET COUNT, AUTOMATED 596 10^3/uL (150-450); RED BLOOD COUNT 4.04 10^6/uL (4.30-6.10); WHITE BLOOD COUNT 10.1 10^3/uL (4.0-10.0)
== END ==
LOC: M SFHCADAM 15:56
PROVIDERS: ATTEND Physician Assistant Medical
DX: I10 Essential (primary) hypertension (principal); K51.90 Ulcerative colitis, unspecified, without complications

== ENCOUNTER → 2022-06-26 | Outpatient (CLI) | payer MEDICARE | LOC: M ADAMS 11:26 | PROVIDERS: ATTEND Physician Assistant Medical | DX: R05.9 Cough, unspecified (principal); C61 Malignant neoplasm of prostate; K51.90 Ulcerative colitis, unspecified, without complications; E78.2 Mixed hyperlipidemia; I10 Essential (primary) hypertension ==

== ENCOUNTER → 2022-06-26 | Outpatient (REF) | payer MEDICARE ==
[2022-06-26 13:14] LABS: BASO % 0.3 % (0.0-1.0); EOS # 0.3 10^3/uL (0.0-0.5); EOS % 3.6 % (0.0-3.0); HEMATOCRIT 46.6 % (42.0-52.0); HEMOGLOBIN 15.4 g/dl (13.5-17.5); LYMPH # 1.3 10^3/uL (1.5-5.0); LYMPH % 14.8 % (24.0-44.0); MEAN CORPUSCULAR HEMOGLOBIN 31.9 pg (27.0-33.0); MEAN CORPUSCULAR VOLUME 96.5 fl (80.0-96.0); MONO # 0.9 10^3/uL (0.0-0.8); MONO % 9.5 % (2.0-8.0); NEUTROPHILS # 6.5 10^3/uL (1.5-8.5); NEUTROPHILS % 71.6 % (36.0-66.0); PLATELET COUNT, AUTOMATED 310 10^3/uL (150-450); RED BLOOD COUNT 4.83 10^6/uL (4.30-6.10); WHITE BLOOD COUNT 9.1 10^3/uL (4.0-10.0)
[2022-06-26 13:38] LABS: PROSTATIC SPECIFIC AG MONITOR 0.04 NG/ML (< 4.00)
[2022-06-26 13:41] LABS: ALBUMIN 3.4 G/DL (3.2-5.2); ALKALINE PHOSPHATASE 89 U/L (46-116); ALT/SGPT 25 U/L (7.0-40); AST/SGOT 28 U/L (<34); BILIRUBIN,TOTAL 0.6 MG/DL (0.3-1.2); BLOOD UREA NITROGEN 13 MG/DL (9-23); CALCIUM LEVEL 8.8 MG/DL (8.3-10.6); CARBON DIOXIDE LEVEL 26 MMOL/L (20-31); CHLORIDE LEVEL 102 MMOL/L (98-107); CHOLESTEROL LEVEL 128 MG/DL (<200); CHOLESTEROL RISK RATIO 2.21 (<5); CREATININE FOR GFR 1.04 MG/DL (0.70-1.30); GLOMERULAR FILTRATION RATE > 60.0 (>42); GLUCOSE, FASTING 101 MG/DL (74-106); HDL CHOLESTEROL 57.8 MG/DL (>40); LDL CHOLESTEROL 53.8 MG/DL (<100); NON-HDL-C 70.2 MG/DL; POTASSIUM SERUM 4.8 MMOL/L (3.5-5.1); SODIUM LEVEL 138 MMOL/L (136-145); TOTAL PROTEIN 6.7 G/DL (5.7-8.2); TRIGLYCERIDES LEVEL 82 MG/DL (<150)
== END ==
LOC: M SFHCADAM 10:33
PROVIDERS: ATTEND Physician Assistant Medical
DX: C61 Malignant neoplasm of prostate (principal); K51.90 Ulcerative colitis, unspecified, without complications; E78.2 Mixed hyperlipidemia; I10 Essential (primary) hypertension

== ENCOUNTER → 2022-10-24 | Outpatient (REF) | payer MEDICARE | LOC: M SFHCDERM 17:37 | PROVIDERS: ATTEND Physician Assistant | DX: L82.1 Other seborrheic keratosis (principal) ==

== ENCOUNTER → 2022-11-12 | Outpatient (REF) | payer MEDICARE | LOC: M SFHCADAM 08:36 | PROVIDERS: ATTEND Urology | DX: C61 Malignant neoplasm of prostate (principal) ==

== ENCOUNTER → 2023-08-19 | Outpatient (REF) | payer MEDICARE ==
[~2023-08-19] MED LIST changes: -ALLE1TAB23 PO; +FEXO-157 PO
[2023-08-19 18:17] LABS: BASO % 0.5 % (0.0-1.0); EOS # 0.3 10^3/uL (0.0-0.5); EOS % 4.6 % (0.0-3.0); HEMATOCRIT 43.7 % (42.0-52.0); LYMPH # 1.8 10^3/uL (1.5-5.0); MEAN CORPUSCULAR HEMOGLOBIN 34.2 pg (27.0-33.0); MEAN CORPUSCULAR HGB CONC 34.3 g/dl (32.0-36.5); MEAN CORPUSCULAR VOLUME 99.5 fl (80.0-96.0); MONO # 0.7 10^3/uL (0.0-0.8); MONO % 9.8 % (2.0-8.0); NEUTROPHILS # 4.5 10^3/uL (1.5-8.5); NEUTROPHILS % 60.7 % (36.0-66.0); PLATELET COUNT, AUTOMATED 292 10^3/uL (150-450); RED BLOOD COUNT 4.39 10^6/uL (4.30-6.10); WHITE BLOOD COUNT 7.3 10^3/uL (4.0-10.0)
[2023-08-19 18:34] LABS: HEMOGLOBIN A1c 5.6 % (4.0-6.0)
[2023-08-19 18:35] LABS: ALBUMIN 3.4 G/DL (3.2-5.2); ALKALINE PHOSPHATASE 71 U/L (46-116); ALT/SGPT 24 U/L (7.0-40); AST/SGOT 21 U/L (<34); BILIRUBIN,TOTAL 0.6 MG/DL (0.3-1.2); BLOOD UREA NITROGEN 14 MG/DL (9-23); CALCIUM LEVEL 8.7 MG/DL (8.3-10.6); CARBON DIOXIDE LEVEL 27 MMOL/L (20-31); CHLORIDE LEVEL 107 MMOL/L (98-107); CHOLESTEROL LEVEL 145 MG/DL (<200); CHOLESTEROL RISK RATIO 2.15 (<5); CREATININE FOR GFR 1.22 MG/DL (0.70-1.30); GLOMERULAR FILTRATION RATE > 60.0 (>42); GLUCOSE, FASTING 98 MG/DL (74-106); HDL CHOLESTEROL 67.3 MG/DL (>40); LDL CHOLESTEROL 59.5 MG/DL (<100); NON-HDL-C 77.7 MG/DL; POTASSIUM SERUM 4.3 MMOL/L (3.5-5.1); SODIUM LEVEL 141 MMOL/L (136-145); THYROID STIMULATING HORMONE 1.337 uIU/ML (0.55-4.78); TOTAL PROTEIN 6.4 G/DL (5.7-8.2); TRIGLYCERIDES LEVEL 91 MG/DL (<150)
[2023-08-19 18:36] LABS: TOTAL 25(OH) VITAMIN D 45.2 NG/ML (20.0-100.0)
== END ==
LOC: M SFHCADAM 13:46
PROVIDERS: ATTEND Physician Assistant Medical
DX: K51.90 Ulcerative colitis, unspecified, without complications (principal); F41.0 Panic disorder [episodic paroxysmal anxiety]; E78.2 Mixed hyperlipidemia; J45.40 Moderate persistent asthma, uncomplicated; R97.20 Elevated prostate specific antigen [PSA]

== ENCOUNTER → 2023-09-25 | Outpatient (CLI) | payer MEDICARE | LOC: M ADAMS 09:44 | PROVIDERS: ATTEND Physician Assistant Medical | DX: R91.8 Other nonspecific abnormal finding of lung field (principal) ==

== ENCOUNTER → 2023-09-30 | Outpatient (CLI) | payer MEDICARE | LOC: M RAD 16:18 | PROVIDERS: ATTEND Surgery | DX: K43.2 Incisional hernia without obstruction or gangrene (principal) ==

== ENCOUNTER → 2023-11-18 | Outpatient (REF) | payer MEDICARE | LOC: M SFHCADAM 08:26 | PROVIDERS: ATTEND Urology | DX: C61 Malignant neoplasm of prostate (principal) ==

== ENCOUNTER → 2024-02-20 | Outpatient (REF) | payer MEDICARE ==
[~2024-02-20] MED LIST changes: -FEXO-157 PO; +FEXO-63 PO
== END ==
LOC: M SFHCADAM 08:32
PROVIDERS: ATTEND Physician Assistant Medical
DX: C61 Malignant neoplasm of prostate (principal)

== ENCOUNTER → 2024-05-18 | Outpatient (CLI) | payer MEDICARE, OTHER | LOC: M ADAMS 09:05 | PROVIDERS: ATTEND Physician Assistant Medical | DX: J45.41 Moderate persistent asthma with (acute) exacerbation (principal) ==

== ENCOUNTER → 2024-06-04 | Outpatient (CLI) | payer MEDICARE, OTHER | LOC: M ADAMS 09:59 | PROVIDERS: ATTEND Physician Assistant | DX: S32.010A Wedge compression fracture of first lumbar vertebra, initial encounter for closed fracture (principal); M47.896 Other spondylosis, lumbar region; X58.XXXA Exposure to other specified factors, initial encounter; Y92.9 Unspecified place or not applicable; Y93.9 Activity, unspecified; Y99.9 Unspecified external cause status; M16.11 Unilateral primary osteoarthritis, right hip; M25.551 Pain in right hip; M46.1 Sacroiliitis, not elsewhere classified ==

== ENCOUNTER 2024-06-11 14:13 | Emergency (ER) | payer MEDICARE, OTHER ==
[~2024-06-11] VITALS: Ht 182.9 cm; Wt 85.6 kg
[2024-06-11 14:18] VITALS: BP 136/90; TEMP 99.2; O2SAT 94
[2024-06-11] MEDS ORDERED: CALC200S (14:48)
[2024-06-11 15:25] LABS: BASO % 0.2 % (0.0-1.0); EOS # 0.1 10^3/uL (0.0-0.5); EOS % 0.9 % (0.0-3.0); HEMATOCRIT 48.1 % (42.0-52.0); HEMOGLOBIN 16.2 g/dl (13.5-17.5); LYMPH # 0.6 10^3/uL (1.5-5.0); LYMPH % 4.4 % (24.0-44.0); MEAN CORPUSCULAR HEMOGLOBIN 32.9 pg (27.0-33.0); MEAN CORPUSCULAR HGB CONC 33.7 g/dl (32.0-36.5); MEAN CORPUSCULAR VOLUME 97.8 fl (80.0-96.0); MONO # 0.5 10^3/uL (0.0-0.8); MONO % 3.3 % (2.0-8.0); NEUTROPHILS # 12.8 10^3/uL (1.5-8.5); NEUTROPHILS % 90.8 % (36.0-66.0); PLATELET COUNT, AUTOMATED 323 10^3/uL (150-450); RED BLOOD COUNT 4.92 10^6/uL (4.30-6.10); WHITE BLOOD COUNT 14.1 10^3/uL (4.0-10.0)
[2024-06-11 15:27] LABS: IONIZED CALCIUM 4.4 MG/DL (4.5-5.3)
[2024-06-11 15:32] LABS: ERYTHROCYTE SEDIMENTATION RATE 19 mm/hr (0-20)
[2024-06-11 15:53] LABS: C REACTIVE PROTEIN QUANTITATIV 0.52 MG/DL (<1.0)
[2024-06-11 15:54] LABS: ALBUMIN 3.5 G/DL (3.2-5.2); ALKALINE PHOSPHATASE 78 U/L (40-129); ALT/SGPT 34 U/L (7.0-40); AST/SGOT 18 U/L (<34); BILIRUBIN,DIRECT 0.3 MG/DL (<0.4); BILIRUBIN,TOTAL 0.8 MG/DL (0.3-1.2); BLOOD UREA NITROGEN 28 MG/DL (9-23); CARBON DIOXIDE LEVEL 22 MMOL/L (20-31); CHLORIDE LEVEL 104 MMOL/L (98-107); CREATININE FOR GFR 1.19 MG/DL (0.70-1.30); GLOMERULAR FILTRATION RATE > 60.0 (>42); GLUCOSE, FASTING 114 MG/DL (74-106); MAGNESIUM LEVEL 1.7 MG/DL (1.8-2.4); PHOSPHORUS LEVEL 1.6 MG/DL (2.4-5.1); POTASSIUM SERUM 4.1 MMOL/L (3.5-5.1); SODIUM LEVEL 138 MMOL/L (136-145); TOTAL PROTEIN 6.9 G/DL (5.7-8.2)
== END 2024-06-11 16:54 | disposition left against medical advice (07) ==
LOC: M ED 14:13
DX: Z53.21 Procedure and treatment not carried out due to patient leaving prior to being seen by health care provider (principal)

== ENCOUNTER → 2024-07-17 | Outpatient (REF) | payer MEDICARE ==
[~2024-07-17] MED LIST changes: +CALC200S
[2024-07-17 14:01] LABS: BLOOD UREA NITROGEN 17 MG/DL (9-23); CALCIUM LEVEL 8.8 MG/DL (8.3-10.6); CARBON DIOXIDE LEVEL 28 MMOL/L (20-31); CHLORIDE LEVEL 106 MMOL/L (98-107); CREATININE FOR GFR 1.17 MG/DL (0.70-1.30); GLOMERULAR FILTRATION RATE > 60.0 (>42); GLUCOSE, FASTING 112 MG/DL (74-106); POTASSIUM SERUM 4.6 MMOL/L (3.5-5.1); SODIUM LEVEL 140 MMOL/L (136-145)
== END ==
LOC: M SFHCADAM 09:59
PROVIDERS: ATTEND Physician Assistant Medical
DX: K51.90 Ulcerative colitis, unspecified, without complications (principal)

== ENCOUNTER → 2024-07-23 | Outpatient (CLI) | payer MEDICARE ==
[~2024-07-23] MED LIST changes: +ISOVUE-370 76% 100ML VIAL As Ordered ONE
== END ==
LOC: M RAD 08:52
PROVIDERS: ATTEND Physician Assistant Medical
DX: M79.604 Pain in right leg (principal); M79.605 Pain in left leg; I73.9 Peripheral vascular disease, unspecified; I70.0 Atherosclerosis of aorta
CPT/HCPCS: 75635; Q9967

== ENCOUNTER → 2024-08-10 | Outpatient (CLI) | payer MEDICARE ==
[~2024-08-10] MED LIST changes: -FLOM0.4C39 PO; -ISOVUE-370 76% 100ML VIAL As Ordered ONE; +TAMS-18 PO
== END ==
LOC: M ADAMS 09:27
PROVIDERS: ATTEND Physician Assistant Medical
DX: J18.9 Pneumonia, unspecified organism (principal)

== ENCOUNTER → 2024-08-10 | Outpatient (REF) | payer MEDICARE ==
[2024-08-10 13:41] LABS: PROSTATIC SPECIFIC AG MONITOR 0.04 NG/ML (< 4.00)
[2024-08-10 13:44] LABS: BASO % 0.3 % (0.0-1.0); EOS # 0.1 10^3/uL (0.0-0.5); EOS % 1.8 % (0.0-3.0); HEMATOCRIT 43.9 % (42.0-52.0); LYMPH # 0.9 10^3/uL (1.5-5.0); LYMPH % 13.7 % (24.0-44.0); MEAN CORPUSCULAR HEMOGLOBIN 33.6 pg (27.0-33.0); MEAN CORPUSCULAR HGB CONC 34.2 g/dl (32.0-36.5); MEAN CORPUSCULAR VOLUME 98.2 fl (80.0-96.0); MONO # 0.7 10^3/uL (0.0-0.8); MONO % 9.7 % (2.0-8.0); NEUTROPHILS # 5.1 10^3/uL (1.5-8.5); NEUTROPHILS % 74.4 % (36.0-66.0); PLATELET COUNT, AUTOMATED 377 10^3/uL (150-450); RED BLOOD COUNT 4.47 10^6/uL (4.30-6.10); WHITE BLOOD COUNT 6.8 10^3/uL (4.0-10.0)
[2024-08-10 13:45] LABS: THYROID STIMULATING HORMONE 1.41 uIU/ML (0.55-4.78)
[2024-08-10 13:48] LABS: FREE T4 1.32 NG/DL (0.89-1.76)
[2024-08-10 13:51] LABS: ALBUMIN 3.3 G/DL (3.2-5.2); BILIRUBIN,TOTAL 0.6 MG/DL (0.3-1.2); CALCIUM LEVEL 9.3 MG/DL (8.3-10.6); CHOLESTEROL RISK RATIO 3.21 (<5); CREATININE FOR GFR 1.07 MG/DL (0.70-1.30); GLOMERULAR FILTRATION RATE 72.8 (>42); HDL CHOLESTEROL 49.5 MG/DL (>40); LDL CHOLESTEROL 90.3 MG/DL (<100); NON-HDL-C 109.5 MG/DL; POTASSIUM SERUM 4.6 MMOL/L (3.5-5.1); TOTAL PROTEIN 6.8 G/DL (5.7-8.2)
[2024-08-10 14:15] LABS: HEMOGLOBIN A1c 5.9 % (4.0-6.0)
== END ==
LOC: M SFHCADAM 09:15
PROVIDERS: ATTEND Physician Assistant Medical
DX: I10 Essential (primary) hypertension (principal); F41.0 Panic disorder [episodic paroxysmal anxiety]; K51.90 Ulcerative colitis, unspecified, without complications; E78.2 Mixed hyperlipidemia; C61 Malignant neoplasm of prostate; Z79.899 Other long term (current) drug therapy

== ENCOUNTER 2024-08-31 12:49 | Emergency (ER) | payer MEDICARE ==
[~2024-08-31] VITALS: Ht 182.9 cm; Wt 84.1 kg
[2024-08-31 14:09] LABS: BASO % 0.3 % (0.0-1.0); EOS # 0.2 10^3/uL (0.0-0.5); EOS % 1.8 % (0.0-3.0); HEMATOCRIT 46.5 % (42.0-52.0); HEMOGLOBIN 15.4 g/dl (13.5-17.5); LYMPH # 1.2 10^3/uL (1.5-5.0); MEAN CORPUSCULAR HGB CONC 33.1 g/dl (32.0-36.5); MEAN CORPUSCULAR VOLUME 99.8 fl (80.0-96.0); MONO # 0.8 10^3/uL (0.0-0.8); MONO % 7.9 % (2.0-8.0); NEUTROPHILS # 7.5 10^3/uL (1.5-8.5); NEUTROPHILS % 77.5 % (36.0-66.0); PLATELET COUNT, AUTOMATED 267 10^3/uL (150-450); RED BLOOD COUNT 4.66 10^6/uL (4.30-6.10); WHITE BLOOD COUNT 9.7 10^3/uL (4.0-10.0)
[2024-08-31 14:18] LABS: BLOOD UREA NITROGEN 15 MG/DL (9-23); CALCIUM LEVEL 9.6 MG/DL (8.3-10.6); CARBON DIOXIDE LEVEL 24 MMOL/L (20-31); CHLORIDE LEVEL 104 MMOL/L (98-107); CK-MB VALUE MASS < 1.0 NG/ML (<3.6); CREATININE FOR GFR 1.31 MG/DL (0.70-1.30); GLOMERULAR FILTRATION RATE 57.1 (>42); GLUCOSE, FASTING 116 MG/DL (74-106); MAGNESIUM LEVEL 2.1 MG/DL (1.8-2.4); POTASSIUM SERUM 4.7 MMOL/L (3.5-5.1); SODIUM LEVEL 138 MMOL/L (136-145)
[2024-08-31 14:20] LABS: THYROID STIMULATING HORMONE 2.514 uIU/ML (0.55-4.78)
[2024-08-31 14:22] LABS: CPK CREATINE PHOSPHOKINASE 131 U/L (46-171); MB/CK RELATIVE INDEX 0.76 (< OR =4)
[2024-08-31 15:32] LABS: MB/CK RELATIVE INDEX 0.57 (< OR =4)
[2024-08-31] MEDS: FAMOTIDINE 20MG/2ML VIAL IVP ONE (17:37)
[2024-08-31] MEDS: diphenhydrAMINE 50MG/ML VIAL IV STA (17:37)
[2024-08-31 18:06] LABS: CPK CREATINE PHOSPHOKINASE 181 U/L (46-171); MB/CK RELATIVE INDEX 0.55 (< OR =4)
[2024-08-31] MEDS ORDERED: PRED20TA PO (18:24)
[2024-08-31] MEDS ORDERED: CETI-24 PO (18:25)
[2024-08-31] MEDS ORDERED: PEPC1TAB5 PO (18:26)
[2024-08-31] MEDS ORDERED: EPIP0.3I2 IM (18:27)
[2024-08-31] MEDS ORDERED: HOLTER MONITOR XX (18:27)
[2024-08-31 18:30] VITALS: BP 110/72; O2SAT 95
[2024-08-31 19:06] VITALS: TEMP 98
== END 2024-08-31 19:08 | disposition home or self-care (01) ==
LOC: M ED 12:49 → EDBD 12:49 → M ED 19:08
DX: R55 Syncope and collapse (principal); T78.40XA Allergy, unspecified, initial encounter; I10 Essential (primary) hypertension; J45.909 Unspecified asthma, uncomplicated; K51.90 Ulcerative colitis, unspecified, without complications; Z85.46 Personal history of malignant neoplasm of prostate; Z87.891 Personal history of nicotine dependence; Z79.82 Long term (current) use of aspirin; Z79.899 Other long term (current) drug therapy
CPT/HCPCS: 80048; 82550; 82553; 83735; 84443; 84484; 85025; 93005; 93041; 94760; 96374; 96375; 99285; J1200; J1308

== ENCOUNTER → 2024-12-15 | Outpatient (CLI) | payer MEDICARE ==
[~2024-12-15] MED LIST changes: +CETI-24 PO; +EPIP0.3I2 IM; +HOLTER MONITOR XX; +PEPC1TAB5 PO
[2024-12-15 15:32] LABS: ALT/SGPT 25.0 U/L (7.0-40); AST/SGOT 26.0 U/L (<34); CALCIUM LEVEL 9.3 MG/DL (8.3-10.6); CARBON DIOXIDE LEVEL 24.0 MMOL/L (20-31); CHLORIDE LEVEL 106.0 MMOL/L (98-107); CREATININE FOR GFR 1.27 MG/DL (0.70-1.30); GLOMERULAR FILTRATION RATE 59.3 (>42); POTASSIUM SERUM 4.2 MMOL/L (3.5-5.1); SODIUM LEVEL 138.0 MMOL/L (136-145)
[2024-12-15 15:39] LABS: CALCIUM LEVEL 9.5 MG/DL (8.3-10.6); CARBON DIOXIDE LEVEL 23.0 MMOL/L (20-31); CHLORIDE LEVEL 105.0 MMOL/L (98-107); CREATININE FOR GFR 1.29 MG/DL (0.70-1.30); GLOMERULAR FILTRATION RATE 58.2 (>42); PHOSPHORUS LEVEL 2.3 MG/DL (2.4-5.1); POTASSIUM SERUM 4.3 MMOL/L (3.5-5.1); SODIUM LEVEL 140.0 MMOL/L (136-145)
== END ==
LOC: M LABDRWAD 08:50
PROVIDERS: ATTEND Registered Nurse
DX: I10 Essential (primary) hypertension (principal); K51.90 Ulcerative colitis, unspecified, without complications

== ENCOUNTER → 2025-02-09 | Outpatient (CLI) | payer MEDICARE | LOC: M CARPUL 12:56 | PROVIDERS: ATTEND Registered Nurse | DX: R94.31 Abnormal electrocardiogram [ECG] [EKG] (principal); R55 Syncope and collapse; I36.0 Nonrheumatic tricuspid (valve) stenosis ==